=== PATIENT | female | born 1965 | race Caucasian/White ===

== ENCOUNTER 2023-10-18 17:21 | Inpatient (IN) ==
[2023-10-18] MEDS ORDERED: ATARAX TAB 25 MG PO PRN (19:21)
[2023-10-18 19:50] LABS: BASOPHILS % (AUTO) 0.6 % (0.2-1.0); EOSINOPHILS # (AUTO) 0.1 x10^3/uL (0.0-0.2); EOSINOPHILS % (AUTO) 2.2 % (0.9-2.9); HEMATOCRIT 37.1 % (36.0-47.0); HEMOGLOBIN 12.6 g/dL (12.0-16.0); LYMPHOCYTES # (AUTO) 1.2 X10^3/uL (1.3-2.9); LYMPHOCYTES % (AUTO) 19.7 % (21.0-51.0); MEAN CORPUSCULAR HEMOGLOBIN 28.4 pg (27.0-34.0); MEAN CORPUSCULAR VOLUME 83.4 fL (80.0-100.0); MEAN PLATELET VOLUME 7.7 fL (7.4-11.0); MONOCYTES # (AUTO) 0.3 x10^3/uL (0.3-0.8); NEUTROPHILS # (AUTO) 4.2 x10^3/uL (2.2-4.8); NEUTROPHILS % (AUTO) 72.5 % (42.0-75.0); PLATELET COUNT 103 X10^3/uL (150.0-450.0); RED BLOOD COUNT 4.44 X10^6/uL (3.5-5.4); RED CELL DISTRIBUTION WIDTH 16.7 % (11.6-16.5); WHITE BLOOD COUNT 5.9 X10^3/uL (3.6-10.0)
[2023-10-18 20:12] VITALS: BMI 47.2
[2023-10-18] MEDS ORDERED: IMITREX TAB PO PRN (21:00)
[2023-10-18] MEDS: LR 1,000 ML IV 1,000 ML IV SCH (21:29)
[2023-10-18] MEDS: SINGULAIR TAB 10 MG PO SCH (21:30)
[2023-10-18] MEDS: MIRAPEX TAB 0.25 MG PO SCH (21:30)
[2023-10-18] MEDS: LIORESAL PO SCH (21:30)
[2023-10-18] MEDS: LOVENOX INJ 80 MG SYR SC ONE (21:46)
[2023-10-19 00:39] LABS: ALANINE AMINOTRANSFERASE 24 Units/L (12-78); ALBUMIN 2.7 g/dL (3.4-5.0); ALKALINE PHOSPHATASE 138 Units/L (46-116); ASPARTATE AMINO TRANSFERASE 21 Units/L (15-37); BLOOD UREA NITROGEN 14 mg/dL (7-18); CALCIUM 8.6 mg/dL (8.5-10.1); CARBON DIOXIDE 31.1 mmol/L (21-32); CHLORIDE 106 mmol/L (98-107); COR CA(FOR HYPOALB) 9.6 mg/dL (8.5-10.1); CREATININE 0.71 mg/dL (0.55-1.02); GLUCOSE 84 mg/dL (65-99); POTASSIUM 3.4 mmol/L (3.5-5.1); SODIUM 144 mmol/L (136-145); TOTAL PROTEIN 6.8 g/dL (6.4-8.2); eGFR NON BLACK RACES > 60 (>60)
[2023-10-19] MEDS: SYNTHROID 75 mcg TAB PO SCH (05:51)
[2023-10-19] MEDS ORDERED: SYNTHROID 50 mcg TAB PO SCH (06:30)
[2023-10-19] MEDS ORDERED: CONSULT PHARMACY - POTASSIUM & MAGNESIUM XX SCH (08:00)
--- NOTE | 2023-10-19 08:17 | EKG ---
Test Reason : preop Blood Pressure : */* mmHG Vent. Rate : 79 BPM Atrial Rate : 79 BPM P-R Int : 146 ms QRS Dur : 148 ms QT Int : 474 ms P-R-T Axes : 61 42 13 degrees QTc Int : 543 ms Sinus rhythm with premature atrial complexes Right bundle branch block Abnormal ECG No previous ECGs available Confirmed by Moe Sheriff MD ([id number]) on 10/19/2023 10:28:07 AM Referred By: Confirmed By: Moe Sheriff MD
--- NOTE | 2023-10-19 08:28 | RAD ---
EXAM: CHEST, 1 VIEW HISTORY: failed central line placement, r/o pneumo; COMPARISON: No relevant prior studies were available for comparison at the time of interpretation. TECHNIQUE: CHEST, 1 VIEW FINDINGS: Chest: Lines and tubes: None Mediastinum: Cardiac and mediastinal shadow is within normal limits for size and contour. Pulmonary vessels: No pulmonary vascular congestion. Lung quiñones: No suspicious airspace opacity. Pleura: No effusion. No pneumothorax. Bones and soft tissues: No acute osseous or soft tissue abnormality. IMPRESSION: 1. No acute cardiopulmonary abnormality THIS IS AN ELECTRONICALLY VERIFIED FINAL REPORT 10/19/2023 8:21 AM - Electronically signed by Dru Betancur MD
[2023-10-19] MEDS: FARXIGA PO SCH (08:49)
[2023-10-19] MEDS: PROTONIX TAB 40 MG PO SCH (08:50)
[2023-10-19] MEDS: NORVASC TAB 10 MG PO SCH (08:50)
[2023-10-19] MEDS: K-DUR TAB 20 MEQ PO SCH (08:50)
[2023-10-19] MEDS: LEXAPRO PO SCH (08:50)
[2023-10-19] MEDS ORDERED: LEXAPRO PO SCH (09:00)
[2023-10-19] MEDS: NS 1,000 ML IV 1,000 ML ONE (09:57)
[2023-10-19] MEDS: D50W ABBOJECT SYR ONE (13:26)
[2023-10-19] MEDS: D5 1/2 NS 1,000 ML 1,000 ML IV ONE (13:30)
[2023-10-19] MEDS: ROBINUL ONE (13:40)
[2023-10-19] MEDS: HEPARIN SODIUM IN D5W 75,000 UNITS/1,500 ML BAG ONE (13:40)
[2023-10-19] MEDS: ANCEF VIAL 1 GRAM ONE (13:40)
[2023-10-19] MEDS: NS 100 ML IV 100 ML ONE (13:40)
[2023-10-19] MEDS ORDERED: PRECEDEX INJ VIAL ONE (13:40)
[2023-10-19] MEDS: OMNIPAQUE 350 mg/mL 50 mL BTL 50 ML ONE (13:40)
[2023-10-19] MEDS: FENTANYL VIAL INJ 100 mcg ONE (13:40)
[2023-10-19] MEDS: KETAMINE HCL ONE (13:40)
[2023-10-19] MEDS: OMNIPAQUE 350 mg/mL 100 mL BTL 100 ML ONE (13:40)
[2023-10-19] MEDS: DIPRIVAN VIAL 20 ML ONE (13:40)
[2023-10-19] MEDS: VERSED ONE (13:40)
[2023-10-19] MEDS: MARCAINE 0.5% ONE (13:40)
[2023-10-19] MEDS: VISIPAQUE 100 ML ONE (13:53)
[2023-10-19] MEDS: VISIPAQUE 50 ML ONE (13:53)
[2023-10-19] MEDS: HEPARIN SODIUM INJ 5000 UNITS ONE (14:01)
[2023-10-19] MEDS: PROTAMINE SULFATE 50 MG VIAL ONE (14:35)
--- NOTE | 2023-10-19 14:52 | OR.IMMED ---
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 Will be on 1800 [place] diet, will discuss femoral femoral bypass with the patient, discontinued Lovenox , start PO Xarelto
[2023-10-19] MEDS: XARELTO PO SCH (21:00)
[2023-10-19] MEDS: NovoLIN R (or HumuLIN R) SC PRN (21:04)
[2023-10-19] MEDS: PERCOCET TAB 5/325 MG PO PRN (22:06)
--- NOTE | 2023-10-20 05:44 | RAD ---
PROCEDURE: Chest X-ray 1 View.HISTORY: Left lower extremity pain.TECHNIQUE: AP portable done at 12:25 a.m..COMPARISON: November 2023.TECHNICAL QUALITY: Satisfactory.FINDINGS:Normal size heart.Mediastinum and hilar regions show no masses or lymphadenopathy.Normal central vascularity.No pulmonary consolidation, masses, pleural fluid, or pneumothorax. Unchanged elevated right hemidiaphragm.No acute bony abnormality.IMPRESSION:1. No evidence of active cardiopulmonary disease.2. Unchanged elevated right hemidiaphragm.THIS IS AN ELECTRONICALLY VERIFIED FINAL REPORT10/20/2023 5:41 AM - Electronically signed by Ronny Stoddard MD
[2023-10-20] MEDS: LEXAPRO ONE (07:50)
[2023-10-20] MEDS: NS 100 ML IV 100 ML ONE (07:51)
[2023-10-20] MEDS ORDERED: LEXAPRO ONE (08:44)
--- NOTE | 2023-10-20 11:50 | W.DIS.FURT ---
Summary of Discharge Discharge Summary of Date Date of Exam: 10/20/23 Admission Date Date of Admission: 10/18/23 Admission Diagnosis Hospital Course: 57 yo female with significant talar deformity and is scheduled for ORIf . Has recent doppler of arteries showing TOR 0n the left of 0.5 with significant rest pain. Had aortogram yesterday showing complete occlusion of the left common iliac artery . I could not get a wire across it and stopped . She will require femoral femoral bypass which is tentatively scheduled for next week. Vital Signs: Vital Signs (72 hours) 10/18/23 19:15 10/18/23 20:00 10/19/23 00:00 Temperature 98.4 F 98.0 F Pulse Rate Pulse Rate [Left Apical] 67 78 Respiratory Rate 19 19 Blood Pressure Blood Pressure [Left Arm] 185/90 135/61 O2 Sat by Pulse Oximetry 97 94 L Oxygen Delivery Method Room Air Room Air Room Air 10/19/23 04:00 10/19/23 04:00 10/19/23 07:00 Temperature 98.0 F 98.0 F Pulse Rate Pulse Rate [Left Apical] 61 61 Respiratory Rate 21 21 Blood Pressure Blood Pressure [Left Arm] 145/64 145/64 O2 Sat by Pulse Oximetry 97 96 Oxygen Delivery Method Room Air Room Air Room Air 10/19/23 08:00 10/19/23 10:16 10/19/23 14:50 Temperature 98.0 F 97.8 F Pulse Rate 59 L Pulse Rate [Left Apical] 65 93 H Respiratory Rate 22 18 18 Blood Pressure 139/65 Blood Pressure [Left Arm] 151/67 149/71 O2 Sat by Pulse Oximetry 98 97 94 L Oxygen Delivery Method Room Air Room Air 10/19/23 15:05 10/19/23 15:20 10/19/23 15:35 Temperature 97.7 F 97.7 F 97.7 F Pulse Rate Pulse Rate [Left Apical] 83 84 81 Respiratory Rate 20 20 20 Blood Pressure Blood Pressure [Left Arm] 147/65 131/55 143/65 O2 Sat by Pulse Oximetry 96 94 L 97 Oxygen Delivery Method 10/19/23 15:50 10/19/23 16:50 10/19/23 17:50 Temperature 97.8 F 97.9 F 97.9 F Pulse Rate Pulse Rate [Left Apical] 70 72 73 Respiratory Rate 18 18 20 Blood Pressure Blood Pressure [Left Arm] 144/76 134/61 144/76 O2 Sat by Pulse Oximetry 94 L 96 96 Oxygen Delivery Method 10/19/23 19:00 10/19/23 20:00 10/19/23 22:06 Temperature 98.6 F Pulse Rate Pulse Rate [Left Apical] 84 Respiratory Rate 20 20 Blood Pressure Blood Pressure [Left Arm] 127/63 O2 Sat by Pulse Oximetry 95 Oxygen Delivery Method Room Air Room Air 10/19/23 19:50 10/19/23 18:50 10/19/23 23:06 Temperature 98.6 F 97.7 F Pulse Rate Pulse Rate [Left Apical] 84 82 Respiratory Rate 20 18 18 Blood Pressure Blood Pressure [Left Arm] 127/63 132/74 O2 Sat by Pulse Oximetry 95 96 Oxygen Delivery Method Room Air Room Air 10/20/23 00:00 10/20/23 03:59 10/20/23 04:00 Temperature 97.8 F 97.7 F Pulse Rate Pulse Rate [Left Apical] 62 80 Respiratory Rate 20 18 19 Blood Pressure Blood Pressure [Left Arm] 171/79 175/76 O2 Sat by Pulse Oximetry 98 95 Oxygen Delivery Method Room Air Room Air 10/20/23 04:59 10/20/23 08:00 10/20/23 07:00 Temperature 97.2 F L Pulse Rate Pulse Rate [Left Apical] 58 L Respiratory Rate 19 17 Blood Pressure Blood Pressure [Left Arm] 125/60 O2 Sat by Pulse Oximetry 90 L Oxygen Delivery Method Room Air Room Air Labs: Laboratory Last Values WBC 5.9 X10^3/uL (3.6-10.0) 10/18/23 19:40 RBC 4.44 X10^6/uL (3.5-5.4) 10/18/23 19:40 Hgb 12.6 g/dL (12.0-16.0) 10/18/23 19:40 Hct 37.1 % (36.0-47.0) 10/18/23 19:40 MCV 83.4 fL (80.0-100.0) 10/18/23 19:40 MCH 28.4 pg (27.0-34.0) 10/18/23 19:40 MCHC 34.0 g/dL (33.0-35.0) 10/18/23 19:40 RDW 16.7 % (11.6-16.5) H 10/18/23 19:40 Plt Count 103 X10^3/uL (150.0-450.0) L 10/18/23 19:40 MPV 7.7 fL (7.4-11.0) 10/18/23 19:40 Neut % (Auto) 72.5 % (42.0-75.0) 10/18/23 19:40 Lymph % (Auto) 19.7 % (21.0-51.0) L 10/18/23 19:40 [place] % (Auto) 5.0 % (0.0-13.0) 10/18/23 19:40 Eos % (Auto) 2.2 % (0.9-2.9) 10/18/23 19:40 Baso % (Auto) 0.6 % (0.2-1.0) 10/18/23 19:40 Neut # (Auto) 4.2 x10^3/uL (2.2-4.8) 10/18/23 19:40 Lymph # (Auto) 1.2 X10^3/uL (1.3-2.9) L 10/18/23 19:40 [place] # (Auto) 0.3 x10^3/uL (0.3-0.8) 10/18/23 19:40 Eos # (Auto) 0.1 x10^3/uL (0.0-0.2) 10/18/23 19:40 Baso # (Auto) 0.0 X10^3/uL (0.0-0.1) 10/18/23 19:40 Absolute Nucleated RBC 0.0 /100WBC 10/18/23 19:40 Sodium 144 mmol/L (136-145) 10/19/23 00:10 Corrected Sodium TNP 10/19/23 00:10 Potassium 3.4 mmol/L (3.5-5.1) L 10/19/23 00:10 Chloride 106 mmol/L (98-107) 10/19/23 00:10 Carbon Dioxide 31.1 mmol/L (21-32) 10/19/23 00:10 BUN 14 mg/dL (7-18) 10/19/23 00:10 Creatinine 0.71 mg/dL (0.55-1.02) 10/19/23 00:10 Est GFR (MDRD) Af Amer > 60 (>60) 10/19/23 00:10 Est GFR (MDRD) Non-Af > 60 (>60) 10/19/23 00:10 Glucose 84 mg/dL (65-99) 10/19/23 00:10 POC Glucose (mg/dL) 66 mg/dL (65-99) 10/19/23 13:24 Calcium 8.6 mg/dL (8.5-10.1) 10/19/23 00:10 Corrected Calcium 9.6 mg/dL (8.5-10.1) 10/19/23 00:10 Magnesium 1.9 mg/dL (2.0-2.9) L 10/20/23 05:30 Total Bilirubin 0.90 mg/dL (0.2-1.0) 10/19/23 00:10 AST 21 Units/L (15-37) 10/19/23 00:10 ALT 24 Units/L (12-78) 10/19/23 00:10 Alkaline Phosphatase 138 Units/L (46-116) H 10/19/23 00:10 Total Protein 6.8 g/dL (6.4-8.2) 10/19/23 00:10 Albumin 2.7 g/dL (3.4-5.0) L 10/19/23 00:10 Globulin 4.1 g/dL (2.5-4.5) 10/19/23 00:10 Albumin/Globulin Ratio 0.7 Ratio (1.1-2.1) L 10/19/23 00:10 Reason For Visit: CRITICAL ISCHEMIA LEFT LEG Discharge Date Discharge Date: 10/20/23 Discharge Diagnosis All Active Problems (Updated 10/20/23 @ 11:39 by Obi Storey) 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 Pt is to keep follow up ap pointment as instructed and take medications as ordered. see hospital course Discharge Medications Discharge Medications: latex Allergy (Severe, Verified 10/20/23 08:52) PHLEBITIS NSAIDS (Non-Steroidal Anti-Inflamma [NSAID] Allergy (Severe, Verified 10/20/23 08:51) ANAPHALEXIS REACTION Penicillins Allergy (Severe, Verified 10/20/23 08:50) ANAPHALEXIS REACTION tramadol [From Ultram] Allergy (Severe, Verified 10/20/23 08:52) RASH CONTINUE taking the following medications dapagliflozin propanediol 10 mg tablet (Farxiga) 10 mg PO QDAY 10/18/23 [History] dapagliflozin propanediol 10 mg tablet (Farxiga) 10 mg PO QDAY 10/18/23 [History] dapagliflozin propanediol 10 mg tablet (Farxiga) 10 mg PO QDAY 10/18/23 [History] oxycodone-acetaminophen 7.5 mg-325 mg tablet 1 tab PO Q8H PRN 10/18/23 [History Percocet 5 mg, 1 po q 6 Hr prn pain, # 20 Discharge Disposition Assessment: see hospital course Discharge Plan Discharge Plan Hospital Course: 57 yo female with significant talar deformity and is scheduled for ORIf . Has recent doppler of arteries showing TOR 0n the left of 0.5 with significant rest pain. Had aortogram yesterday showing complete occlusion of the left common iliac artery . I could not get a wire across it and stopped . She will require femoral femoral bypass which is tentatively scheduled for next week. Patient Disposition: 01 HOME, SELF-CARE Condition: Stable Health Concerns: Post Hospitalization: new medications and changes needed to prevent readmission or further decline. Pt educated and given instructions on all concerns. Care Plan Goals: Problem: Pain/Alteration in Comfort Goal: Improve/ Resolve Pain; Achieve Pain Tolerance Instructions: Take pain medications as prescribed. Contact your primary care provider if your pain is unrelieved or worsens. Follow up with primary care provider as directed. Plan of Treatment: Continue with present treatment and follow up plan. Pt is to keep follow up appointment as instructed and take medications as ordered. see hospital course Assessment: see hospital course Prescription drug monitoring program results: PDMP reviewed and no concerns identified Prescriptions: New oxycodone-acetaminophen [Percocet] 5-325 mg tablet 1 tab PO Q6H MDD 4 PRN (Reason: pain) Qty: 20 0RF Continued carvedilol 25 MG tablet 25 mg PO BID venlafaxine 75 MG tablet 75 mg PO DAILY quetiapine 200 MG tablet 200 mg PO HS amlodipine 10 MG tablet 10 mg PO DAILY metoclopramide HCl 10 MG tablet 10 mg PO BID ramipril 10 MG capsule 10 mg PO DAILY pioglitazone-metformin [Actoplus MET] 15 MG/850 MG tablet 1 tab PO BID Esomeprazole Magnesium [Nexium 40MG CAP] 40 MG Cap 40 mg PO DAILY Levothyroxine Sodium [Synthroid] 75 MCG Tab 75 mcg PO DAILY Potassium Chloride Microencaps [Klor-Con M10 (10 mEQ)] 10 MEQ Tab 10 meq PO DAILY Oxycodone HCl [Oxycontin] 10 MG Tab 15 mg PO BID dapagliflozin propanediol [Farxiga] 10 mg tablet 10 mg PO QDAY dapagliflozin propanediol [Farxiga] 10 mg tablet 10 mg PO QDAY dapagliflozin propanediol [Farxiga] 10 mg tablet 10 mg PO QDAY oxycodone-acetaminophen 7.5-325 mg tablet 1 tab PO Q8H PRN Follow ups/Referrals Follow ups/Referrals: Obi Storey [STAFF PHYSICIAN] - 11/06/23 11:30 am Instructions Instructions: Endovascular Therapy for Peripheral Vascular Disease, Care After Stand Alone Forms: Excuse From Work or School, Post Hospital Follow Up Care
[2023-10-20 12:56] VITALS: BP 153/70; PULSE 61; RESP 18; TEMP 98.2; O2SAT 91
--- NOTE | 2023-10-23 11:27 | DR.OPNOTE ---
OP NOTE Pre-Op Diagnosis: Critical ischemia left leg Post-Op Diagnosis: same Procedure Date Date Of Procedure: 10/19/23 Procedure: PROCEDURE: DIAGNOSTIC AORTOGRAM, DIAGNOSTIC ARTERIOGRAM LEFT LEG NARRATIVE : The patient was taken to the operative suite and placed in the supine position. The right groin and entire left leg were prepped and draped in sterile fashion. The patient was given intravenous sedation supervised by myself. Time out for the procedure obtained. Ultrasound used to identify the right femoral artery and the skin overlying it infiltrated with 0.5% Marcaine. Ultrasound then used to guide puncture of the right femoral artery and a 0.012 inch guide wire was placed. Incision made over the guide wire at the skin edge with a # 11 knife blade and a micro sheath placed over the guide wire into the right femoral artery The small guidewire exchanged for a 0.035 inch Advantage glide wire and the micro sheath exchanged for a 5 Fr vascular sheath. Patient given 5000 units of intravenous heparin. Omni catheter was placed over the guide wire into the aorta and diagnostic aortogram carried out with the power injector showing normal aorta and completely occluded left common iliac arterty . Omni catheter was attempted to steer the guide wire down the left common iliac artery but this was unsuccessful. Ultrasound used to identify the left femoral artery and the skin overlying it infiltrated with 0.5% Marcaine .Ultrasound used to guide puncture of the left common femoral artery and a 0.014 inch wire placed. Incision made over the wire with a number 11 knife blade and a micro sheath placed over the guide wire into the left femoral artery . The small wire exchanged for a 0.035 inch Advantage Leckrone wire and the micro sheath exchanged for a 5 Fr sheath. Multiple attempts to cross the left iliac arttery occlusion were unsuccesful. Arteriogram obtained of the left leg by infusing contrast through the left sided sheath. Left leg runoff was normal. Over a 0.035 inch wkire on each side the vascualr sheaths were exchanged for Angioseal devices used to close each femoral artery puncture. Dressing applied to the both groins. The patient taken to [facility] Day Surgery in good condition. The patient will be scheduled for femoral femoral bypass in the future. Type of Anesthesia: Local (0.5% Marcaine ) Anesthesia Comment: plus MAC Findings: Complete occlusion of the left common iliac artery Type of Fluids Used:: Lactated Ringers Total Amount of Fluid Infused:: 450 cc EBL: 150 cc Complications:: none Needle/Sponge Count:: rrect Disposition/Condition: Pt. tolerated procedure without difficulty. Taken to floor in stable condition.
== END 2023-10-20 12:20 | disposition home or self-care (01) | DRG 301 ==
LOC: MED/SURG 18:59
PROVIDERS: ADMIT Surgery; ATTEND Surgery

== ENCOUNTER 2023-10-24 08:09 | Observation (INO) ==
[2023-10-24] MEDS: ANCEF VIAL 1 GRAM ONE ×2 (08:34→13:52)
[2023-10-24] MEDS: NS 100 ML IV 0 ML ONE (08:34)
[2023-10-24] MEDS: NOZIN NASAL SANITIZER TP ONE (08:34)
[2023-10-24] MEDS: LR 1,000 ML IV 0 ML IV ONE (08:36)
[2023-10-24] MEDS: NS 1,000 ML IV 1,000 ML ONE ×2 (08:39→14:41)
[2023-10-24 09:44] VITALS: BMI 47.1
--- NOTE | 2023-10-24 10:30 | PCM.PROG ---
Progress Note - Past Medical Family Social History Allergies: Allergies latex Allergy (Severe, Verified 10/20/23 08:52) PHLEBITIS NSAIDS (Non-Steroidal Anti-Inflamma [NSAID] Allergy (Severe, Verified 10/20/23 08:51) ANAPHALEXIS REACTION Penicillins Allergy (Severe, Verified 10/20/23 08:50) ANAPHALEXIS REACTION tramadol [From Ultram] Allergy (Severe, Verified 10/20/23 08:52) RASH acetaminophen [From Tylenol] Allergy (Verified 10/23/23 11:25) clindamycin Allergy (Verified 10/23/23 11:25) ibuprofen [From Motrin] Allergy (Verified 10/23/23 11:25) - Vital Signs and I&O's Vital Signs: Vital Signs Pulse Rate 80 Respiratory Rate 18 Blood Pressure 206/81 O2 Sat by Pulse Oximetry 97 - Physical Exam Speech Pattern: Clear, Appropriate Procedures (ALL) - Central Line Placement PCM.CLCO: written consent Time out performed: Yes Patient placed pm monitor/pulse ox: Yes MD prep: mask, gown, gloves, other (MSBT) Centrial line prep: chlorhexidine scrub, sterile drapes applied Local anesthsia used: lidocane 1% Ultrasound used for placement: Yes (good visual) Central line lumen ininserted: triple Post procedure: sutured in place, good blood return, all ports aspirated, flushed,capped, sterile dressing applied (with biopatch) Post procedure xray: tip oc catheter in good position, no pneumothorax seen Patient tolerated procedure: Yes (x1 attempt) Complications: none (Right IJ)
[2023-10-24] MEDS: ZOFRAN INJ 4 MG VIAL ONE (10:55)
[2023-10-24] MEDS: REGLAN INJ 10 MG VIAL ONE (10:55)
[2023-10-24] MEDS: NS 500 ML IV 500 ML IV ONE (11:00)
--- NOTE | 2023-10-24 11:54 | RAD ---
EXAM:CHEST, 1 VIEWHISTORY:CENTRAL LINE PLACEMENT, PRE OP FEMORAL BYPASS;COMPARISON:No relevant prior studies were available for comparison at the time of interpretation.TECHNIQUE:CHEST, 1 VIEWFINDINGS:Chest:Lines and tubes: Right IJ approach central catheter is seen with its tip in satisfactory positionMediastinum: Cardiac and mediastinal shadow is within normal limits for size and contour.Pulmonary vessels: No pulmonary vascular congestion.Lung quiñones: No suspicious airspace opacity.Pleura: No effusion. No pneumothorax.Bones and soft tissues: No acute osseous or soft tissue abnormality.IMPRESSION:1. No acute cardiopulmonary abnormalityTHIS IS AN ELECTRONICALLY VERIFIED FINAL REPORT10/24/2023 11:51 AM - Electronically signed by Dru Betancur MD
[2023-10-24] MEDS: HEPARIN SODIUM IN D5W 75,000 UNITS/1,500 ML BAG ONE (13:17)
[2023-10-24] MEDS ORDERED: BARHEMSYS INJ IVP PRN (13:40)
[2023-10-24] MEDS ORDERED: DILAUDID INJ IVP PRN (13:40)
[2023-10-24] MEDS ORDERED: ZOFRAN INJ 4 MG VIAL IVP PRN (13:40)
[2023-10-24] MEDS ORDERED: BENADRYL INJ 50 MG VIAL IVP PRN (13:40)
[2023-10-24] MEDS ORDERED: REGLAN INJ 10 MG VIAL IVP PRN (13:40)
[2023-10-24] MEDS: PEPCID 20 MG VIAL ONE (13:49)
[2023-10-24] MEDS: ZEMURON 100 MG VIAL ONE (13:49)
[2023-10-24] MEDS: FENTANYL VIAL INJ 100 mcg ONE ×2 (13:49→14:47)
[2023-10-24] MEDS ORDERED: SUPRANE ONE (13:49)
[2023-10-24] MEDS: DIPRIVAN VIAL 20 ML ONE (13:49)
[2023-10-24] MEDS: VERSED ONE (13:49)
[2023-10-24] MEDS: NS 100 ML IV 100 ML ONE (13:52)
[2023-10-24] MEDS: BRIDION ONE (13:53)
[2023-10-24] MEDS: MARCAINE 0.5% ONE (14:22)
[2023-10-24] MEDS: HEPARIN SODIUM INJ 5000 UNITS ONE (14:54)
[2023-10-24] MEDS: EPHEDRINE SULFATE INJ ONE (15:26)
[2023-10-24] MEDS: PROTAMINE SULFATE 50 MG VIAL ONE (15:37)
[2023-10-24] MEDS ORDERED: NS 500 ML IV 500 ML IV ONE (15:59)
--- NOTE | 2023-10-24 16:17 | OR.IMMED ---
IMMEDIATE POST-OP NOTE Immediate Post-Op Note Date of surgery/procedure: 10/24/23 Pre-Op Diagnosis: critical ischemia left leg, complete occlusion left common iliac artery Post-Op Diagnosis: same Procedure: femoral femoral bypass Description of Procedure: see dictation Surgeon/Wild Life Manager: Cordelia Findings: as above Estimated Blood Loss: 350 cc Complications: none Progress Notes: To CCU for observation, check stat CBC
[2023-10-24] MEDS ORDERED: ATARAX TAB 25 MG PO PRN (16:18)
[2023-10-24] MEDS ORDERED: NovoLIN R (or HumuLIN R) SC PRN (16:23)
[2023-10-24 16:42] LABS: BASOPHILS % (AUTO) 0.4 % (0.2-1.0); EOSINOPHILS # (AUTO) 0.1 x10^3/uL (0.0-0.2); EOSINOPHILS % (AUTO) 2.9 % (0.9-2.9); HEMATOCRIT 34.1 % (36.0-47.0); HEMOGLOBIN 11.5 g/dL (12.0-16.0); LYMPHOCYTES # (AUTO) 0.8 X10^3/uL (1.3-2.9); LYMPHOCYTES % (AUTO) 17.3 % (21.0-51.0); MEAN CORPUSCULAR HEMOGLOBIN 28.5 pg (27.0-34.0); MEAN CORPUSCULAR HGB CONC 33.8 g/dL (33.0-35.0); MEAN CORPUSCULAR VOLUME 84.3 fL (80.0-100.0); MEAN PLATELET VOLUME 7.7 fL (7.4-11.0); MONOCYTES # (AUTO) 0.4 x10^3/uL (0.3-0.8); MONOCYTES % (AUTO) 8.7 % (0.0-13.0); NEUTROPHILS # (AUTO) 3.4 x10^3/uL (2.2-4.8); NEUTROPHILS % (AUTO) 70.7 % (42.0-75.0); PLATELET COUNT 90 X10^3/uL (150.0-450.0); RED BLOOD COUNT 4.05 X10^6/uL (3.5-5.4); RED CELL DISTRIBUTION WIDTH 16.9 % (11.6-16.5); WHITE BLOOD COUNT 4.8 X10^3/uL (3.6-10.0)
[2023-10-24] MEDS: NORMODYNE INJ 20 MG VIAL ONE (16:44)
[2023-10-24] MEDS: LR 1,000 ML IV 1,000 ML IV SCH (17:16)
[2023-10-24] MEDS: PERCOCET TAB 5/325 MG PO PRN ×2 (17:40→18:42)
[2023-10-24] MEDS: LIORESAL PO SCH (21:08)
[2023-10-24] MEDS: SINGULAIR TAB 10 MG PO SCH (21:08)
[2023-10-24] MEDS: MIRAPEX TAB 0.25 MG PO SCH (21:08)
[2023-10-25] MEDS ORDERED: NORMODYNE INJ 100 MG VIAL IVP ONE (00:19)
[2023-10-25] MEDS ORDERED: CATAPRES TAB 0.2 MG PO ONE (00:21)
[2023-10-25] MEDS: DILAUDID INJ IVP PRN (00:45)
[2023-10-25 05:13] LABS: BASOPHILS % (AUTO) 0.2 % (0.2-1.0); EOSINOPHILS # (AUTO) 0.2 x10^3/uL (0.0-0.2); EOSINOPHILS % (AUTO) 2.5 % (0.9-2.9); HEMATOCRIT 29.3 % (36.0-47.0); HEMOGLOBIN 9.8 g/dL (12.0-16.0); LYMPHOCYTES # (AUTO) 0.3 X10^3/uL (1.3-2.9); LYMPHOCYTES % (AUTO) 5.2 % (21.0-51.0); MEAN CORPUSCULAR HEMOGLOBIN 28.2 pg (27.0-34.0); MEAN CORPUSCULAR HGB CONC 33.6 g/dL (33.0-35.0); MEAN CORPUSCULAR VOLUME 84.1 fL (80.0-100.0); MEAN PLATELET VOLUME 8.1 fL (7.4-11.0); MONOCYTES # (AUTO) 0.7 x10^3/uL (0.3-0.8); MONOCYTES % (AUTO) 10.6 % (0.0-13.0); NEUTROPHILS # (AUTO) 5.3 x10^3/uL (2.2-4.8); NEUTROPHILS % (AUTO) 81.5 % (42.0-75.0); PLATELET COUNT 95 X10^3/uL (150.0-450.0); RED BLOOD COUNT 3.48 X10^6/uL (3.5-5.4); RED CELL DISTRIBUTION WIDTH 17.2 % (11.6-16.5); WHITE BLOOD COUNT 6.5 X10^3/uL (3.6-10.0)
[2023-10-25] MEDS: SYNTHROID 75 mcg TAB PO SCH (05:36)
[2023-10-25] MEDS: LIPITOR TAB 40 MG PO SCH (09:16)
[2023-10-25] MEDS: PROTONIX TAB 40 MG PO SCH (09:16)
[2023-10-25] MEDS: NORVASC TAB 10 MG PO SCH (09:17)
[2023-10-25] MEDS: LEXAPRO PO SCH (09:18)
[2023-10-25] MEDS: ZESTRIL TAB 20 MG PO SCH (09:18)
[2023-10-25] MEDS: LOVENOX INJ 40 MG SYR SC SCH (09:19)
[2023-10-25] MEDS: LEXAPRO ONE ×2 (10:23→10:25)
[2023-10-25] MEDS: ZESTRIL TAB 20 MG ONE (10:25)
--- NOTE | 2023-10-25 11:26 | W.DIS.FURT ---
Summary of Discharge Discharge Summary of Date Date of Exam: 10/25/23 Admission Date Date of Admission: 10/24/23 Admission Diagnosis Hospital Course: This is a 57 year old female, morbidly obese who was referred for vascular evaluation preceding operative intervention of the right ankle. Dopper studies showed normal blood flow of the right leg however the left leg had an index of 0.5. Last week we performed arteriography showing complete occlusion of the left common iliac artery and I could not get a wire cross it to repair this in a peripheral based fashion. Therefore, yesterday she underwent a femoral femoral bypass without complication. Post procedure she has done well and is using a walker and her pain is controlled with PO pain medications. She has a history of hypertension and has been on amlodipine, lisinopril l and carvediol, however her primary care physician had stopped her carvediol l and the lisinopril Blood pressure has been approximately 170 / 70. We will start the lisinopril back and send her home today. In addition she will be given prescription for Percocet, 10 milligram tablets, 1 PO q 6 Hr PRN , # 30 and I will see her in the office in 1 week. We will refer her back to her PCP to further address her hypertension. Vital Signs: Vital Signs (72 hours) 10/24/23 09:33 10/24/23 08:29 10/24/23 16:16 Temperature 98.9 F Pulse Rate 80 109 H Pulse Rate [Apical] Respiratory Rate 18 16 Blood Pressure 206/81 183/77 Blood Pressure [Left Arm] O2 Sat by Pulse Oximetry 97 97 Oxygen Delivery Method Room Air Nasal Cannula Aerosol Face Tent Oxygen Flow Rate 2 FIO2% 10/24/23 16:21 10/24/23 16:31 10/24/23 16:41 Temperature Pulse Rate 88 85 80 Pulse Rate [Apical] Respiratory Rate 17 18 18 Blood Pressure 178/77 180/77 182/79 Blood Pressure [Left Arm] O2 Sat by Pulse Oximetry 96 98 97 Oxygen Delivery Method Aerosol Face Tent Aerosol Face Tent Nasal Cannula Oxygen Flow Rate FIO2% 10/24/23 16:26 10/24/23 16:36 10/24/23 16:46 Temperature Pulse Rate 89 79 82 Pulse Rate [Apical] Respiratory Rate 18 18 18 Blood Pressure 192/77 178/77 172/73 Blood Pressure [Left Arm] O2 Sat by Pulse Oximetry 96 96 97 Oxygen Delivery Method Aerosol Face Tent Nasal Cannula Nasal Cannula Oxygen Flow Rate FIO2% 10/24/23 17:40 10/24/23 18:42 10/24/23 18:40 Temperature Pulse Rate Pulse Rate [Apical] Respiratory Rate 20 20 20 Blood Pressure Blood Pressure [Left Arm] O2 Sat by Pulse Oximetry Oxygen Delivery Method Oxygen Flow Rate FIO2% 10/24/23 16:55 10/24/23 17:10 10/24/23 17:25 Temperature 97.6 F 97.6 F 97.5 F L Pulse Rate Pulse Rate [Apical] 80 78 75 Respiratory Rate 21 19 20 Blood Pressure Blood Pressure [Left Arm] 191/79 144/65 169/65 O2 Sat by Pulse Oximetry 91 L 92 L 96 Oxygen Delivery Method Oxygen Flow Rate FIO2% 10/24/23 17:40 10/24/23 17:55 10/24/23 19:00 Temperature 97.5 F L 97.5 F L Pulse Rate Pulse Rate [Apical] 70 66 Respiratory Rate 22 18 Blood Pressure Blood Pressure [Left Arm] 166/101 174/71 O2 Sat by Pulse Oximetry 98 97 Oxygen Delivery Method Nasal Cannula Oxygen Flow Rate 4 FIO2% 10/24/23 19:00 10/24/23 19:42 10/24/23 20:00 Temperature 97.6 F 97.8 F Pulse Rate 69 67 Pulse Rate [Apical] Respiratory Rate 27 H 22 43 H Blood Pressure 161/69 155/68 Blood Pressure [Left Arm] O2 Sat by Pulse Oximetry 96 97 Oxygen Delivery Method Nasal Cannula Nasal Cannula Oxygen Flow Rate 4 4 FIO2% 10/24/23 21:00 10/24/23 23:00 10/25/23 00:45 Temperature Pulse Rate 72 Pulse Rate [Apical] Respiratory Rate 22 18 24 Blood Pressure 171/72 Blood Pressure [Left Arm] O2 Sat by Pulse Oximetry 98 Oxygen Delivery Method Nasal Cannula Oxygen Flow Rate 4 FIO2% 10/24/23 22:00 10/24/23 23:00 10/24/23 18:55 Temperature 97.5 F L Pulse Rate 69 67 Pulse Rate [Apical] 62 Respiratory Rate 25 H 24 19 Blood Pressure 171/73 147/64 Blood Pressure [Left Arm] 161/68 O2 Sat by Pulse Oximetry 96 99 98 Oxygen Delivery Method Nasal Cannula Nasal Cannula Oxygen Flow Rate 4 4 FIO2% 10/24/23 19:55 10/24/23 20:55 10/24/23 21:55 Temperature 97.8 F 97.8 F 98.3 F Pulse Rate Pulse Rate [Apical] 70 74 70 Respiratory Rate 24 21 20 Blood Pressure Blood Pressure [Left Arm] 155/68 171/72 147/64 O2 Sat by Pulse Oximetry 98 99 99 Oxygen Delivery Method Oxygen Flow Rate FIO2% 10/24/23 23:24 10/25/23 00:00 10/25/23 00:00 Temperature 98.3 F Pulse Rate 71 Pulse Rate [Apical] Respiratory Rate 19 24 Blood Pressure 159/68 Blood Pressure [Left Arm] O2 Sat by Pulse Oximetry 99 Oxygen Delivery Method Nasal Cannula Nasal Cannula Oxygen Flow Rate 3 3 FIO2% 32 10/25/23 01:00 10/25/23 02:59 10/25/23 03:00 Temperature Pulse Rate 80 85 84 Pulse Rate [Apical] Respiratory Rate 29 H 30 H 27 H Blood Pressure 148/60 Blood Pressure [Left Arm] O2 Sat by Pulse Oximetry 94 L 96 96 Oxygen Delivery Method Nasal Cannula Oxygen Flow Rate 3 FIO2% 10/25/23 03:01 10/25/23 03:01 10/25/23 01:15 Temperature Pulse Rate 85 Pulse Rate [Apical] Respiratory Rate 27 H 22 Blood Pressure 158/68 Blood Pressure [Left Arm] O2 Sat by Pulse Oximetry 96 Oxygen Delivery Method Oxygen Flow Rate FIO2% 10/25/23 04:00 10/25/23 05:00 10/25/23 05:32 Temperature 98.5 F Pulse Rate 90 90 Pulse Rate [Apical] Respiratory Rate 31 H 29 H 21 Blood Pressure 149/66 173/72 Blood Pressure [Left Arm] O2 Sat by Pulse Oximetry 95 97 Oxygen Delivery Method Nasal Cannula Nasal Cannula Oxygen Flow Rate 3 3 FIO2% 10/25/23 06:02 10/25/23 06:00 10/25/23 07:00 Temperature Pulse Rate 92 H 95 H Pulse Rate [Apical] Respiratory Rate 18 32 H 26 H Blood Pressure 122/69 140/63 Blood Pressure [Left Arm] O2 Sat by Pulse Oximetry 93 L 96 Oxygen Delivery Method Nasal Cannula Nasal Cannula Oxygen Flow Rate 3 2 FIO2% 10/25/23 08:00 10/25/23 09:10 10/25/23 07:00 Temperature 98.6 F Pulse Rate 97 H Pulse Rate [Apical] Respiratory Rate 34 H Blood Pressure 160/69 Blood Pressure [Left Arm] O2 Sat by Pulse Oximetry 95 Oxygen Delivery Method Nasal Cannula Nasal Cannula Nasal Cannula Oxygen Flow Rate 2 3 2 FIO2% 32 10/25/23 09:00 Temperature 98.6 F Pulse Rate 98 H Pulse Rate [Apical] Respiratory Rate 30 H Blood Pressure 160/70 Blood Pressure [Left Arm] O2 Sat by Pulse Oximetry 96 Oxygen Delivery Method Nasal Cannula Oxygen Flow Rate 2 FIO2% Labs: Laboratory Last Values WBC 6.5 X10^3/uL (3.6-10.0) 10/25/23 04:22 RBC 3.48 X10^6/uL (3.5-5.4) L 10/25/23 04:22 Hgb 9.8 g/dL (12.0-16.0) L 10/25/23 04:22 Hct 29.3 % (36.0-47.0) L 10/25/23 04:22 MCV 84.1 fL (80.0-100.0) 10/25/23 04:22 MCH 28.2 pg (27.0-34.0) 10/25/23 04:22 MCHC 33.6 g/dL (33.0-35.0) 10/25/23 04:22 RDW 17.2 % (11.6-16.5) H 10/25/23 04:22 Plt Count 95 X10^3/uL (150.0-450.0) L 10/25/23 04:22 MPV 8.1 fL (7.4-11.0) 10/25/23 04:22 Neut % (Auto) 81.5 % (42.0-75.0) H 10/25/23 04:22 Lymph % (Auto) 5.2 % (21.0-51.0) L 10/25/23 04:22 Dupage % (Auto) 10.6 % (0.0-13.0) 10/25/23 04:22 Eos % (Auto) 2.5 % (0.9-2.9) 10/25/23 04:22 Baso % (Auto) 0.2 % (0.2-1.0) 10/25/23 04:22 Neut # (Auto) 5.3 x10^3/uL (2.2-4.8) H 10/25/23 04:22 Lymph # (Auto) 0.3 X10^3/uL (1.3-2.9) L 10/25/23 04:22 Dupage # (Auto) 0.7 x10^3/uL (0.3-0.8) 10/25/23 04:22 Eos # (Auto) 0.2 x10^3/uL (0.0-0.2) 10/25/23 04:22 Baso # (Auto) 0.0 X10^3/uL (0.0-0.1) 10/25/23 04:22 Absolute Nucleated RBC 0.1 /100WBC 10/25/23 04:22 POC Glucose (mg/dL) 102 mg/dL (65-99) H 10/24/23 16:23 Blood Type A POSITIVE 10/24/23 14:38 Antibody Screen Negative 10/24/23 14:38 Reason For Visit: FEMOROFEMORAL BYPASS (L) Discharge Date Discharge Date: 10/25/23 Discharge Diagnosis All Active Problems (Updated 10/24/23 @ 10:30 by Juan J Ordonez) 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 Pt is to keep follow up appointment as instructed and take medications as ordered. Discharge Medications Discharge Medications: latex Allergy (Severe, Verified 10/20/23 08:52) PHLEBITIS NSAIDS (Non-Steroidal Anti-Inflamma [NSAID] Allergy (Severe, Verified 10/20/23 08:51) ANAPHALEXIS REACTION Penicillins Allergy (Severe, Verified 10/20/23 08:50) ANAPHALEXIS REACTION tramadol [From Ultram] Allergy (Severe, Verified 10/20/23 08:52) RASH acetaminophen [From Tylenol] Allergy (Verified 10/23/23 11:25) clindamycin Allergy (Verified 10/23/23 11:25) ibuprofen [From Motrin] Allergy (Verified 10/23/23 11:25) CONTINUE taking the following medications atorvastatin 40 mg tablet (Lipitor) 40 mg PO QDAY 10/23/23 [History] baclofen 10 mg tablet 10 mg PO TID 10/23/23 [History] erenumab-aooe 70 mg/mL subcutaneous auto-injector (Aimovig Autoinjector) 70 mg subcut QMONTH 10/23/23 [History] escitalopram oxalate 10 mg tablet (Lexapro) 10 mg PO TID 10/23/23 [History] famotidine 40 mg tablet 40 mg PO QPM 10/23/23 [History] hydroxyzine HCl 25 mg tablet 25 mg PO Q8H PRN 10/23/23 [History] insulin aspart U-100 100 unit/mL (3 mL) subcutaneous pen (Novolog FlexPen U-100 Insulin aspart) 1 sliding scale dose subcut USEASDIRECTD 10/23/23 [History] insulin degludec 200 unit/mL (3 mL) subcutaneous pen (Tresiba FlexTouch U-200 insulin) 10 unit subcut QDAY 10/23/23 [History] levocetirizine 5 mg tablet 5 mg PO QDAY 10/23/23 [History] montelukast 10 mg tablet 10 mg PO QDAY 10/23/23 [History] ymbmpbif-fwjb-lzdd 8 mg-folic 400 mcg-K 50 mcg-lutein 300 mcg tablet (Centrum Silver Women) 1 tab PO QDAY 10/23/23 [History] pramipexole 1 mg tablet 1 mg PO TID 10/23/23 [History] solifenacin 5 mg tablet 5 mg PO QPM 10/23/23 [History] sumatriptan succinate 100 mg tablet (Imitrex) 100 mg PO BID PRN Headache 10/23/23 [History] suvorexant 10 mg tablet (Belsomra) 10 mg PO QPM 10/23/23 [History] tirzepatide 15 mg/0.5 mL subcutaneous pen injector (Mounjaro) 15 mg subcut QWEEK 10/23/23 [History] Norvasc 10 mg po daily lisinopril 30 mg daily New Perceocet 10 mg 1 po q 6 hr PRN pain. Discharge Disposition Assessment: see hospital course Discharge Plan Discharge Plan Hospital Course: This is a 57 year old female, morbidly obese who was referred for vascular evaluation preceding operative intervention of the right ankle. Dopper studies showed normal blood flow of the right leg however the left leg had an index of 0.5. Last week we performed arteriography showing complete occlusion of the left common iliac artery and I could not get a wire cross it to repair this in a peripheral based fashion. Therefore, yesterday she underwent a femoral femoral bypass without complication. Post procedure she has done well and is using a walker and her pain is controlled with PO pain medications. She has a history of hypertension and has been on amlodipine, lisinopril l and carvediol, however her primary care physician had stopped her carvediol l and the lisinopril Blood pressure has been approximately 170 / 70. We will start the lisinopril back and send her home today. In addition she will be given prescription for Percocet, 10 milligram tablets, 1 PO q 6 Hr PRN , # 30 and I will see her in the office in 1 week. We will refer her back to her PCP to further address her hypertension. Patient Disposition: 01 HOME, SELF-CARE Condition: Good Health Concerns: Post Hospitalization: new medications and changes needed to prevent readmission or further decline. Pt educated and given instructions on all concerns. Care Plan Goals: Problem: Pain/Alteration in Comfort Goal: Improve/ Resolve Pain; Achieve Pain Tolerance Instructions: Take pain medications as prescribed. Contact your primary care provider if your pain is unrelieved or worsens. Follow up with primary care provider as directed. Plan of Treatment: Continue with present treatment and follow up plan. Pt is to keep follow up appointment as instructed and take medications as ordered. Assessment: see hospital course Prescriptions: New oxycodone-acetaminophen [Percocet] 10-325 mg tablet 1 tab PO Q6H MDD 4 PRNQty: 30 0RF Continued quetiapine 200 MG tablet 200 mg PO HS amlodipine 10 MG tablet 10 mg PO DAILY Esomeprazole Magnesium [Nexium 40MG CAP] 40 MG Cap 40 mg PO BID Levothyroxine Sodium [Synthroid] 75 MCG Tab 75 mcg PO DAILY dapagliflozin propanediol [Farxiga] 10 mg tablet 10 mg PO QDAY pramipexole 1 mg tablet 1 mg PO TID atorvastatin [Lipitor] 40 mg Tablet 40 mg PO QDAY sumatriptan succinate [Imitrex] 100 mg Tablet 100 mg PO BID PRN (Reason: Headache) famotidine 40 mg tablet 40 mg PO QPM baclofen 10 mg tablet 10 mg PO TID montelukast 10 mg tablet 10 mg PO QDAY hydroxyzine HCl 25 mg tablet 25 mg PO Q8H PRN escitalopram oxalate [Lexapro] 10 mg Tablet 10 mg PO TID insulin aspart U-100 [Novolog FlexPen U-100 Insulin] 100 unit/mL (3 mL) Insulin Pen 1 sliding scale dose SUBCUT USEASDIRECTD solifenacin 5 mg tablet 5 mg PO QPM levocetirizine 5 mg Tablet 5 mg PO QDAY Centrum Silver Women 8 mg iron-400 mcg-50 mcg Tablet 1 tab PO QDAY insulin degludec [Tresiba FlexTouch U-200] 200 unit/mL (3 mL) Insulin Pen 10 unit SUBCUT QDAY Belsomra 10 mg tablet 10 mg PO QPM Aimovig Autoinjector 70 mg/mL auto-injector 70 mg SUBCUT QMONTH Mounjaro 15 mg/0.5 mL Pen Injector 15 mg SUBCUT QWEEK Orders to Discharge Patient Discharge Orders: Discharge (Routine); Ordered 10/25/23 Ordered By: Obi Storey Follow ups/Referrals Follow ups/Referrals: Obi Storey [STAFF PHYSICIAN] - 11/06/23 10:15 am Instructions Instructions: Femorofemoral Bypass, Care After, Carotid Artery Disease, Ea sy-to-Read Stand Alone Forms: Excuse From Work or School, Post Hospital Follow Up Care
[2023-10-25 13:12] VITALS: BP 181/73; PULSE 101; RESP 21; TEMP 98.3; O2SAT 97
--- NOTE | 2023-10-30 14:22 | DR.OPNOTE ---
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 Both groins and the lower abdomen prepped and draped in sterile fashion. Timeout for the procedure obtained. Vertical incision was made in the left groin and dissection carried out with some difficulty due to her large size identifying the common femoral artery, superficial femoral artery and profunda femoris . Vessel loops placed around all of these after dissecting them out. Identical procedure carried out on the right side through a vertical incision placing vessel loops around all of the vessels of the right groin including the common femoral, superficial femoral and profunda femoris A 6 millimeter ringed Gortex graph was tunneled over the pubic bone in the subcutaneous tissue between the 2 incisions. The patietn was given 5,000 units f IV of Heparin. The left common femoral atery was clamped and the other vessels controlled with vessel lopos . The artery opened with a # 11 knife blade and Pott's scissors, the graft fashioned for anastomosis and the anastomosis carried out with running 5-0 Proline suture. The graft was clamped and back bleeding allowed showing no significant bleeding other than needle holes. With the graft clamped and the left artery unclamped the right common femoral artery clamped and other vessels controlled with vessel loops. The right common femoral artery opened with # 11 knife blade and Pott's scissors, the graft fashioned for anastomosis with a number 11 knife blade and anastomosis performed with running fiber 5-0 Prolene suture. Flow re-es tablished by releasing the clamps with 2 areas of leaking requiring figure of eight sutures of 6 -0 prolene suture. The patient had excellent Flow by doppler study in the superficial femoral arteries of both legs. The groins irrigated. Surgicel placed over both anastomoisis. Each groin close with 2 layers of running 2-0 Vicryl suture and the skin closed with skin Fantasma. The patient tolerated all this well, was extubated and taken to PACU in good condition. Type of Anesthesia: General Anesthetic w/ETT Findings: ABOVE Type of Fluids Used:: Lactated Ringers Total Amount of Fluid Infused:: 1600 CC Urine output: 300 CC EBL: 350 CC Drains/Tubes Placed: None Complications:: NONE Needle/Sponge Count:: CORRECT Disposition/Condition: Pt. tolerated procedure without difficulty. Extubated in the OR and taken to PACU in stable condition.
--- NOTE | 2023-10-30 14:37 | DR.UPDATE ---
H&P UPDATE Review Yes Any changes to H&P?: No Changes noted:: This is the update for the H&P for admission 10/24/2023 after surgery Patient was examined?: Yes
== END 2023-10-25 14:05 | disposition home or self-care (01) ==
LOC: INTOOBSV 08:09 → MED/SURG 08:09 → ICU 16:55
PROVIDERS: ADMIT Surgery; ATTEND Surgery

== ENCOUNTER 2023-10-28 01:19 | Observation (INO) ==
--- NOTE | 2023-10-28 01:37 | DR.EXTPAIN ---
HPI Time seen Time Seen by Provider: 10/28/23 01:35 Complaint/Symptoms Chief Complaint Doctor Comments: Patient was sent [address] Nails out of the ER in [place]. He stated the patient presented there after having a recent femoropopliteal done by Dr. Hickey here there was some warmth at the site of erythema to site and she need to be further evaluated by him and the hospital here. COVID-19 Coronavirus risk:travel/contact w/high risk person: No Has patient experienced Coronavirus symptoms: No PMH PMH Past Medical History: Diabetes, Dyslipidemia and Hypertension Past Surgical History: Yes Surgical History: Cholecystectomy, Hysterectomy, Joint Replacement and Tonsillectomy Family History Family Medical History: Diabetes Mellitus, Cancer, Heart Failure and Hypertension Social History Do you use any recreational Drugs:: No Travel Risk Coronavirus risk:travel/contact w/high risk person: No Has patient experienced Coronavirus symptoms: No ROS Review of Systems Constitutional: Other (Altered mental status and lower abdominal pain) Eyes: No Symptoms Reported ENTM: No Symptoms Reported Respiratoy: No Symptoms Reported Cardiovascular: No Symptoms Reported Gastrointestinal/Abdominal: Abdominal Pain Genitourinary: No Symptoms Reported Neurological: Other (Altered mental status) Musculoskeletal: No Symptoms Reported Integumentary: No Symptoms Reported Hematologic/Lymphatic: No Symptoms Reported Endocrine: No Symptoms Reported Psychiatric: Other (Altered mental status) PE Vital Signs Vitals: Vital Signs Temperature 99.1 F Temperature 98.7 F Pulse Rate 104 Pulse Rate 95 Pulse Rate 94 Pulse Rate 107 Respiratory Rate 18 Respiratory Rate 18 Respiratory Rate 16 Respiratory Rate 23 Blood Pressure 117/55 Blood Pressure 87/50 Blood Pressure 103/56 Blood Pressure 120/57 O2 Sat by Pulse Oximetry 94 O2 Sat by Pulse Oximetry 95 O2 Sat by Pulse Oximetry 98 O2 Sat by Pulse Oximetry 97 General Limitations: Physical Limitation (LIMITED DUE TO INCREASED ABDOMINAL PAIN AND LETHARGY) Head Head Exam: Normal Inspection, Atraumatic and Normocephalic Eyes Eye exam: Normal Appearance, PERRL and EOMI ENT ENT Exam: Normal Exam, Normal Oropharynx and Normal External Ear Exam Neck Neck Exam: Normal Inspection and Full ROM Chest Chest Inspection: Normal Inspection and Symmetric Chest Wall Rise Respiratory Respiratory Exam: Normal Lung Sounds Bilat Respiratory Exam: Bilateral: Clear to Auscultation Cardiovascular Cardiovascular Exam: Regular Rate and Normal Rhythm Abdominal Exam Abdominal Exam: Normal Inspection and Tenderness (LOWER QUADRANTS) Abdominal Tenderness: Other (LOWER QUADRANTS) Extremities Extremities Exam: Normal Inspection Upper Extremities Arm Exam: Normal Inspection Elbow Exam: Normal Inspection Forearm Exam: Normal Inspection Hand Exam: Normal Inspection Neuromotor Exam: Normal Exam Neurosensory Exam: Normal Exam Lower Extremities Hip/Pelvis Exam: Normal Inspection Upper Leg Exam: Normal Inspection Knee Exam: Normal Inspection Lower Leg Exam: Normal Inspection Ankle Exam: Normal Inspection Foot/Toe Exam: Normal Inspection Gait Exam: Not Tested/Not Observed Back Back Exam: Normal Inspection Neurological Neurological Exam: Alert, Oriented X3 and CN II-XII Intact Psychiatric Psychiatric Exam: Depressed Skin Skin Exam: Warm and Dry MDM Differential Diagnosis Differential Diagnosis: Other (SEPSIS,NINTENTIONAL DRUG OVERDOSE,UTI,LOCAL CELLULITIS) COURSE Treatment Treatment: Patient remained stable during ER evaluation although we did review the note sent from [facility] Dr. Nails and the patient did not appear to be septic and very minimal erythema of the area on her lower abdominal area the patient was with leukocytosis and she appeared to be grossly alert. The patient did have a femoropopliteal done 2 days ago the ER physician at [place] stated the patient probably need to be follow-up with intubated I did the femoropopliteal therefore he would like for us to set the patient here for further evaluation if needed and to be seen by her vascular surgeon. I did except the patient here for further evaluation and we did call Dr. Storey he stated that get a CT scan of her brain to make sure nothing going on and there we did get that and she had no intracranial bleed or no intra cranial abnormality.Back to Dr. Storey at about 0 420 and he stated he would like for the medical on-call center recruiter to evaluate further for this change in her mental status and I also spoke to Dr. Betancourt at 0 445 and he said he will except the ankle rest. I reevaluated patient and 455 and she was more alert at that particular time I advised her that we were going to refer to observation for this change in mental status and see if she does improve she stated she felt with her that they did give her the Narcan earlier and we will continue to treat her for pain and monitor her neurologic status. The patient had labs drawn and [place] which she did not have a elevated white count and the other labs were normal lactic acid level was normal and she was was not febrile when she got here temperature was 99.1. Will draw labs on this patient for the a.m. draw CBC CMP. Opioid Opioid Risk Tool Age (Torres box if 16-45): No History of Preadolescent Sexual Abuse: No Total: 0 Total Score Risk Category: Low Risk Copyright: Serjio BARTHOLOMEW predicting aberrant behaviors Discharge Plan Diagnosis Discharge Problem: Accidental medication overdose, Acute alteration in mental status, Status post femoral-popliteal bypass surgery Discharge Plan Patient Disposition: 09 ADMITTED INPATIENT Condition: Stable Orders to Discharge Patient Discharge Orders: Transfer (Routine); Ordered 10/28/23 Ordered By: Robert Saul
[2023-10-28 01:45] VITALS: BMI 47.1
--- NOTE | 2023-10-28 03:21 | CT ---
EXAM: CT HEAD WITHOUT IV CONTRAST HISTORY: Confusion COMPARISON: None. TECHNIQUE: Axial images were acquired of the head without IV contrast. Coronal and sagittal images were provided . All images were reviewed in a variety of windows and levels. LIMITATIONS: Please note that CT has low sensitivity and accuracy for identifying acute infarction. I n addition, there are portions of the brain that are affected by beam hardening artifact which furthe r greatly limits identification of an acute infarct. RADIATION REDUCTION TECHNIQUE: Automated exposure control, Adjustment of the mA and/or kV according t o patient size, or iterative reconstruction techniques were used. FINDINGS: There is no evidence of an acute intracranial bleed. There is no evidence of a mass or midline shift. There is no evidence of an extra-axial fluid collection. The jaime-white matter differentiation is within normal limits. The visualized bones are unremarkable. The visualized sinuses are clear. The mastoid air cells are well-aerated. IMPRESSION: 1. THERE IS NO EVIDENCE OF AN ACUTE INTRACRANIAL BLEED THIS IS AN ELECTRONICALLY VERIFIED FINAL REPORT 10/28/2023 3:18 AM - Electronically signed by Troy Townsend MD
[2023-10-28] MEDS: NARCAN INJ IVP ONE (03:30)
[2023-10-28] MEDS ORDERED: PATIENT'S HOME MEDICATION (Insulin Aspart U-100 [Novolog Flexpen U-100 Insulin] 100 unit/m SUBCUT SCH (05:27)
[2023-10-28] MEDS: LEXAPRO PO SCH (06:13)
[2023-10-28] MEDS: LEXAPRO ONE ×2 (07:06→21:05)
[2023-10-28] MEDS ORDERED: PATIENT'S HOME MEDICATION (Dapagliflozin Propanediol [Farxiga] 10 mg tablet) PO SCH (09:00)
[2023-10-28] MEDS: SYNTHROID 75 mcg TAB PO SCH (09:16)
[2023-10-28] MEDS: FARXIGA PO SCH (09:16)
[2023-10-28] MEDS: LIPITOR TAB 40 MG PO SCH (09:17)
[2023-10-28] MEDS: NexIUM PO SCH (09:18)
[2023-10-28] MEDS: [UNRECOGNIZED DRUG - OTHER] SUBCUT SCH (09:24)
[2023-10-28] MEDS: INSULIN DEGLUDEC 200 UNIT/ML SUBCUT SCH (09:24)
[2023-10-28 09:58] LABS: BASOPHILS % (AUTO) 0.4 % (0.2-1.0); EOSINOPHILS % (AUTO) 0.3 % (0.9-2.9); HEMATOCRIT 25.3 % (36.0-47.0); HEMOGLOBIN 8.6 g/dL (12.0-16.0); LYMPHOCYTES # (AUTO) 0.6 X10^3/uL (1.3-2.9); LYMPHOCYTES % (AUTO) 6.5 % (21.0-51.0); MEAN CORPUSCULAR HEMOGLOBIN 28.7 pg (27.0-34.0); MEAN CORPUSCULAR HGB CONC 34.1 g/dL (33.0-35.0); MEAN CORPUSCULAR VOLUME 84.1 fL (80.0-100.0); MEAN PLATELET VOLUME 7.3 fL (7.4-11.0); MONOCYTES # (AUTO) 0.8 x10^3/uL (0.3-0.8); MONOCYTES % (AUTO) 9.1 % (0.0-13.0); NEUTROPHILS # (AUTO) 7.6 x10^3/uL (2.2-4.8); NEUTROPHILS % (AUTO) 83.7 % (42.0-75.0); PLATELET COUNT 103 X10^3/uL (150.0-450.0); RED CELL DISTRIBUTION WIDTH 17.9 % (11.6-16.5); WHITE BLOOD COUNT 9.1 X10^3/uL (3.6-10.0)
[2023-10-28 10:09] LABS: ALBUMIN 1.8 g/dL (3.4-5.0); CALCIUM 8.6 mg/dL (8.5-10.1); CARBON DIOXIDE 29.5 mmol/L (21-32); COR CA(FOR HYPOALB) 10.4 mg/dL (8.5-10.1); CREATININE 1.28 mg/dL (0.55-1.02); MAGNESIUM 2.1 mg/dL (2.0-2.9); POTASSIUM 4.4 mmol/L (3.5-5.1)
--- NOTE | 2023-10-28 12:22 | DR.H&P ---
H&P History & Physical for Day of: H&P Date: 10/28/23 Chief Complaint Chief Complaint: leg pain, rash, AMS Allergies Allergies Allergy/AdvReac Type Severity Reaction Status Date / Time latex Allergy Severe PHLEBITIS Verified 10/28/23 01:47 NSAIDS (Non-Steroidal Allergy Severe ANAPHALEXIS Verified 10/28/23 01:47 Anti-Inflamma REACTION [NSAID] Penicillins Allergy Severe ANAPHALEXIS Verified 10/28/23 01:47 REACTION tramadol [From Ultram] Allergy Severe RASH Verified 10/28/23 01:47 acetaminophen [From Tylenol] Allergy Verified 10/28/23 01:47 clindamycin Allergy Verified 10/28/23 01:47 ibuprofen [From Motrin] Allergy Verified 10/28/23 01:47 History of Present Illness History of Present Illness: Ms Wright is a 57y/o female who was discharged on 10/25/23 after having left leg femoral bypass procedure by Dr Storey. She initially presented to [place] [facility] and was transferred here to be evaluated by Dr Storey. She was noted to be confused on admission. CT-brain did not show any acute abnormalities. Patient was discharged with pain medications so it's unclear if she took too many opioids. Patient did receive narcan in the ER. She was admitter for observation. She is alert and oriented this morning. She reports having left leg pain and redness around the site. She has been ambulating to the bathroom. Labs/imaging reviewed -Hgb 8.6 Plt 103 WBC 9.1 BUN/Cr: 44/1.28 Plan: Continue current treatment, Dr Storey has been consulted to assess the patient's procedure site. Patient does not have a white count. Monitor redness. Resume home medications. Patient states she is not sure how much pain medicine she took yesterday. She states her leg was hurting a lot so she took more. Monitor AM labs/imaging. Past Medical History Past Medical History: Diabetes, Dyslipidemia and Hypertension Past Surgical History Surgical History: Cholecystectomy, Hysterectomy, Joint Replacement and Tonsillectomy Family History Family Medical History: Diabetes Mellitus, Cancer, Heart Failure and Hypertension Social History Does any household member use tobacco: No Alcohol Use: None Drug Use: None Medications Home Medications: Home Medications Medication Instructions Recorded Confirmed Type Esomeprazole Magnesium [Nexium 40 mg PO BID 07/22/12 10/28/23 History 40MG CAP] Levothyroxine Sodium [Synthroid] 75 mcg PO DAILY 07/22/12 10/28/23 History amlodipine 10 mg tablet 10 mg PO DAILY 07/22/12 10/23/23 History quetiapine 200 mg tablet 200 mg PO HS 07/22/12 10/28/23 History dapagliflozin propanediol 10 mg 10 mg PO QDAY 10/18/23 10/28/23 History tablet (Farxiga) atorvastatin 40 mg tablet (Lipitor) 40 mg PO QDAY 10/23/23 10/28/23 History baclofen 10 mg tablet 10 mg PO TID 10/23/23 10/23/23 History erenumab-aooe 70 mg/mL 70 mg subcut QMONTH 10/23/23 10/28/23 History subcutaneous auto-injector (Aimovig Autoinjector) escitalopram oxalate 10 mg tablet 10 mg PO TID 10/23/23 10/28/23 History (Lexapro) famotidine 40 mg tablet 40 mg PO QPM 10/23/23 10/28/23 History hydroxyzine HCl 25 mg tablet 25 mg PO Q8H PRN 10/23/23 10/23/23 History insulin aspart U-100 100 unit/mL 1 sliding scale dose subcut 10/23/23 10/28/23 History (3 mL) subcutaneous pen (Novolog USEASDIRECTD FlexPen U-100 Insulin aspart) insulin degludec 200 unit/mL (3 10 unit subcut QDAY 10/23/23 10/23/23 History mL) subcutaneous pen (Tresiba FlexTouch U-200 insulin) levocetirizine 5 mg tablet 5 mg PO QDAY 10/23/23 10/28/23 History montelukast 10 mg tablet 10 mg PO QDAY 10/23/23 10/28/23 History lamuoyez-umou-jwlr 8 mg-folic 400 1 tab PO QDAY 10/23/23 10/23/23 History mcg-K 50 mcg-lutein 300 mcg tablet (Centrum Silver Women) pramipexole 1 mg tablet 1 mg PO TID 10/23/23 10/28/23 History solifenacin 5 mg tablet 5 mg PO QPM 10/23/23 10/28/23 History sumatriptan succinate 100 mg 100 mg PO BID PRN Headache 10/23/23 10/28/23 History tablet (Imitrex) suvorexant 10 mg tablet (Belsomra) 10 mg PO QPM 10/23/23 10/28/23 History tirzepatide 15 mg/0.5 mL 15 mg subcut QWEEK 10/23/23 10/28/23 History subcutaneous pen injector (Mounjaro) Labs 10/28/23 09:50 10/28/23 09:50 Labs: Laboratory WBC 9.1 X10^3/uL (3.6-10.0) 10/28/23 09:50 RBC 3.00 X10^6/uL (3.5-5.4) L 10/28/23 09:50 Hgb 8.6 g/dL (12.0-16.0) L 10/28/23 09:50 Hct 25.3 % (36.0-47.0) L 10/28/23 09:50 MCV 84.1 fL (80.0-100.0) 10/28/23 09:50 MCH 28.7 pg (27.0-34.0) 10/28/23 09:50 MCHC 34.1 g/dL (33.0-35.0) 10/28/23 09:50 RDW 17.9 % (11.6-16.5) H 10/28/23 09:50 Plt Count 103 X10^3/uL (150.0-450.0) L 10/28/23 09:50 MPV 7.3 fL (7.4-11.0) L 10/28/23 09:50 Neut % (Auto) 83.7 % (42.0-75.0) H 10/28/23 09:50 Lymph % (Auto) 6.5 % (21.0-51.0) L 10/28/23 09:50 [place] % (Auto) 9.1 % (0.0-13.0) 10/28/23 09:50 Eos % (Auto) 0.3 % (0.9-2.9) L 10/28/23 09:50 Baso % (Auto) 0.4 % (0.2-1.0) 10/28/23 09:50 Neut # (Auto) 7.6 x10^3/uL (2.2-4.8) H 10/28/23 09:50 Lymph # (Auto) 0.6 X10^3/uL (1.3-2.9) L 10/28/23 09:50 [place] # (Auto) 0.8 x10^3/uL (0.3-0.8) 10/28/23 09:50 Eos # (Auto) 0.0 x10^3/uL (0.0-0.2) 10/28/23 09:50 Baso # (Auto) 0.0 X10^3/uL (0.0-0.1) 10/28/23 09:50 Absolute Nucleated RBC 0.1 /100WBC 10/28/23 09:50 Sodium 137 mmol/L (136-145) 10/28/23 09:50 Corrected Sodium 139 mmol/L (136-145) 10/28/23 09:50 Potassium 4.4 mmol/L (3.5-5.1) 10/28/23 09:50 Chloride 101 mmol/L (98-107) 10/28/23 09:50 Carbon Dioxide 29.5 mmol/L (21-32) 10/28/23 09:50 BUN 44 mg/dL (7-18) H 10/28/23 09:50 Creatinine 1.28 mg/dL (0.55-1.02) H 10/28/23 09:50 Est GFR (MDRD) Af Amer 55 (>60) L 10/28/23 09:50 Est GFR (MDRD) Non-Af 46 (>60) L 10/28/23 09:50 Glucose 191 mg/dL (65-99) H 10/28/23 09:50 POC Glucose (mg/dL) 138 mg/dL (65-99) H 10/28/23 11:38 Calcium 8.6 mg/dL (8.5-10.1) 10/28/23 09:50 Corrected Calcium 10.4 mg/dL (8.5-10.1) H 10/28/23 09:50 Magnesium 2.1 mg/dL (2.0-2.9) 10/28/23 09:50 Total Bilirubin 1.60 mg/dL (0.2-1.0) H 10/28/23 09:50 AST 45 Units/L (15-37) H 10/28/23 09:50 ALT 59 Units/L (12-78) 10/28/23 09:50 Alkaline Phosphatase 115 Units/L (46-116) 10/28/23 09:50 Total Protein 6.0 g/dL (6.4-8.2) L 10/28/23 09:50 Albumin 1.8 g/dL (3.4-5.0) L 10/28/23 09:50 Globulin 4.2 g/dL (2.5-4.5) 10/28/23 09:50 Albumin/Globulin Ratio 0.4 Ratio (1.1-2.1) L 10/28/23 09:50 Review of Systems Constitutional: Weakness Eyes: No Symptoms Reported ENT: No Symptoms Reported Respiratory: No Symptoms Reported Cardiovascular: No Symptoms Reported Gastrointestinal: No Symptoms Reported Musculoskeletal: Leg Pain Skin: Rash Neurological: Confusion Physical Exam Vital Signs: Vital Signs Temperature 98.9 F Temperature 98.9 F Pulse Rate [Left Brachial] 90 Pulse Rate [Left Brachial] 100 Pulse Rate 88 Respiratory Rate 20 Respiratory Rate 19 Respiratory Rate 18 Blood Pressure [Left Arm] 108/53 Blood Pressure [Left Arm] 102/53 Blood Pressure 106/56 O2 Sat by Pulse Oximetry 90 O2 Sat by Pulse Oximetry 92 O2 Sat by Pulse Oximetry 94 Oriented: Normal Eyes: Normal Nose: Normal Throat: Normal Respiratory: Diminished Throughout Cardiovascular: Normal and Edema Auscultation: Bowel Sounds: Normal Palpation: Normal Tenderness: Normal Skin: Rash and Tender Musculoskeletal: Left (groin area, slight erythema noted, mild tenderness ) Psychiatric: Normal Affect: Normal Speech Pattern: Clear and Appropriate Assessment/Plan (1) Accidental medication overdose: Qualifiers: Encounter type: initial encounter Qualified Code(s): T50.901A - Poisoning by unspecified drugs, medicaments and biological substances, accidental (unintentional), initial encounter Status: Acute (2) Acute alteration in mental status: Status: Acute (3) Status post femoral-popliteal bypass surgery: Status: Acute (4) Atherosclerosis of [place] arteries of extremities with rest pain, left leg: Status: Acute Review H&P Reviewed: Yes Patient was examined?: Yes
[2023-10-28] MEDS ORDERED: LEXAPRO ONE (13:24)
[2023-10-28] MEDS: PEPCID TAB 40 MG PO SCH (21:04)
[2023-10-28] MEDS: NYSTATIN POWDER TOP SCH (21:39)
[2023-10-28] MEDS: VANCOMYCIN IV *PREMIX 1.75 G/350 ML BAG 1.75 G/350 ML PIGGYBACK IV SCH (21:39)
[2023-10-28] MEDS ORDERED: VANCOMYCIN IV *PREMIX 1 G/200 ML BAG 1 G/200 ML PIGGYBACK IV SCH (22:00)
[2023-10-28] MEDS: NS 500 ML IV 500 ML IV ONE (22:18)
[2023-10-29 05:18] LABS: BASOPHILS % (AUTO) 0.2 % (0.2-1.0); EOSINOPHILS % (AUTO) 0.5 % (0.9-2.9); HEMATOCRIT 23.3 % (36.0-47.0); HEMOGLOBIN 7.9 g/dL (12.0-16.0); LYMPHOCYTES # (AUTO) 0.5 X10^3/uL (1.3-2.9); LYMPHOCYTES % (AUTO) 7.4 % (21.0-51.0); MEAN CORPUSCULAR HEMOGLOBIN 28.4 pg (27.0-34.0); MEAN CORPUSCULAR HGB CONC 33.9 g/dL (33.0-35.0); MEAN PLATELET VOLUME 7.5 fL (7.4-11.0); MONOCYTES # (AUTO) 0.8 x10^3/uL (0.3-0.8); MONOCYTES % (AUTO) 11.4 % (0.0-13.0); NEUTROPHILS # (AUTO) 5.4 x10^3/uL (2.2-4.8); NEUTROPHILS % (AUTO) 80.5 % (42.0-75.0); PLATELET COUNT 93 X10^3/uL (150.0-450.0); RED BLOOD COUNT 2.77 X10^6/uL (3.5-5.4); RED CELL DISTRIBUTION WIDTH 17.8 % (11.6-16.5); WHITE BLOOD COUNT 6.7 X10^3/uL (3.6-10.0)
[2023-10-29] MEDS: LEXAPRO ONE (05:28)
[2023-10-29 05:42] LABS: ALANINE AMINOTRANSFERASE 47 Units/L (12-78); ALBUMIN 1.6 g/dL (3.4-5.0); ALKALINE PHOSPHATASE 103 Units/L (46-116); ASPARTATE AMINO TRANSFERASE 33 Units/L (15-37); BLOOD UREA NITROGEN 31 mg/dL (7-18); CALCIUM 8.3 mg/dL (8.5-10.1); CARBON DIOXIDE 29.7 mmol/L (21-32); CHLORIDE 103 mmol/L (98-107); COR CA(FOR HYPOALB) 10.2 mg/dL (8.5-10.1); COR NA(FOR HYPERGLY) 140 mmol/L (136-145); CREATININE 0.93 mg/dL (0.55-1.02); GLUCOSE 141 mg/dL (65-99); POTASSIUM 3.8 mmol/L (3.5-5.1); SODIUM 139 mmol/L (136-145); TOTAL PROTEIN 5.7 g/dL (6.4-8.2); eGFR NON BLACK RACES > 60 (>60)
[2023-10-29] MEDS ORDERED: CONSULT PHARMACY - POTASSIUM & MAGNESIUM XX SCH (06:00)
[2023-10-29] MEDS: TRESIBA U-100 INSULIN SC SCH (08:33)
[2023-10-29] MEDS: K-DUR TAB 20 MEQ PO SCH ×2 (08:34→11:37)
--- NOTE | 2023-10-29 11:53 | PCM.PROG ---
Progress Note Progress Note for Day of Date of Exam: 10/29/23 Subjective Subjective: Patient seen at bedside, no acute events overnight. She states her legs continue to hurt. Wound Cx was collected yesterday and IV Vancomycin was started by Dr Storey. She has been getting up and ambulating a little bit. Her BP has been low this morning, 97/56. Labs/imaging reviewed -Hgb 7.9 Plt 93 BUN/Cr: 31/0.93 -Wound Cx pending Plan: follow Vascular recommendations, continue IV Vancomycin, follow wound Cx. Continue wound care. Will add Demerol prn for pain control. Hold anti- hypertensives, monitor BP. Repeat H&H. Continue other medications. Add lovenox for DVT ppx. Monitor AM labs/imaging. Past Medical Family Social History Allergies: Allergies latex Allergy (Severe, Verified 10/28/23 01:47) PHLEBITIS NSAIDS (Non-Steroidal Anti-Inflamma [NSAID] Allergy (Severe, Verified 10/28/23 01:47) ANAPHALEXIS REACTION Penicillins Allergy (Severe, Verified 10/28/23 01:47) ANAPHALEXIS REACTION tramadol [From Ultram] Allergy (Severe, Verified 10/28/23 01:47) RASH acetaminophen [From Tylenol] Allergy (Verified 10/28/23 01:47) clindamycin Allergy (Verified 10/28/23 01:47) ibuprofen [From Motrin] Allergy (Verified 10/28/23 01:47) Vital Signs and I&O's Vital Signs: Vital Signs Temperature 97.9 F Temperature 98.3 F Pulse Rate [Left Brachial] 86 Pulse Rate [Left Brachial] 93 Respiratory Rate 20 Respiratory Rate 20 Blood Pressure [Left Arm] 97/56 Blood Pressure [Left Arm] 123/59 O2 Sat by Pulse Oximetry 96 O2 Sat by Pulse Oximetry 92 Intake and Output: Intake & Output 10/26/23 10/27/23 10/28/23 10/29/23 23:59 23:59 23:59 23:59 Intake Total 630 / 630 820 / 820 Balance 630 / 630 820 / 820 Physical Exam Oriented: Normal Eyes: Normal Nose: Normal Throat: Normal Cardiovascular: Normal and Edema Auscultation: Bowel Sounds: Normal Palpation: Normal Tenderness: Normal Skin: Rash and Tender Musculoskeletal: Left (groin area, slight erythema noted, mild tenderness ) Psychiatric: Normal Mood Description: Calm Affect: Normal Speech Pattern: Clear and Appropriate Laboratory and Diagnostics 10/29/23 04:32 10/29/23 04:32 Labs: Laboratory WBC 6.7 X10^3/uL (3.6-10.0) 10/29/23 04:32 RBC 2.77 X10^6/uL (3.5-5.4) L 10/29/23 04:32 Hgb 7.9 g/dL (12.0-16.0) L 10/29/23 04:32 Hct 23.3 % (36.0-47.0) L 10/29/23 04:32 MCV 84.0 fL (80.0-100.0) 10/29/23 04:32 MCH 28.4 pg (27.0-34.0) 10/29/23 04:32 MCHC 33.9 g/dL (33.0-35.0) 10/29/23 04:32 RDW 17.8 % (11.6-16.5) H 10/29/23 04:32 Plt Count 93 X10^3/uL (150.0-450.0) L 10/29/23 04:32 MPV 7.5 fL (7.4-11.0) 10/29/23 04:32 Neut % (Auto) 80.5 % (42.0-75.0) H 10/29/23 04:32 Lymph % (Auto) 7.4 % (21.0-51.0) L 10/29/23 04:32 [place] % (Auto) 11.4 % (0.0-13.0) 10/29/23 04:32 Eos % (Auto) 0.5 % (0.9-2.9) L 10/29/23 04:32 Baso % (Auto) 0.2 % (0.2-1.0) 10/29/23 04:32 Neut # (Auto) 5.4 x10^3/uL (2.2-4.8) H 10/29/23 04:32 Lymph # (Auto) 0.5 X10^3/uL (1.3-2.9) L 10/29/23 04:32 [place] # (Auto) 0.8 x10^3/uL (0.3-0.8) 10/29/23 04:32 Eos # (Auto) 0.0 x10^3/uL (0.0-0.2) 10/29/23 04:32 Baso # (Auto) 0.0 X10^3/uL (0.0-0.1) 10/29/23 04:32 Absolute Nucleated RBC 0.1 /100WBC 10/29/23 04:32 Sodium 139 mmol/L (136-145) 10/29/23 04:32 Corrected Sodium 140 mmol/L (136-145) 10/29/23 04:32 Potassium 3.8 mmol/L (3.5-5.1) 10/29/23 04:32 Chloride 103 mmol/L (98-107) 10/29/23 04:32 Carbon Dioxide 29.7 mmol/L (21-32) 10/29/23 04:32 BUN 31 mg/dL (7-18) H 10/29/23 04:32 Creatinine 0.93 mg/dL (0.55-1.02) 10/29/23 04:32 Est GFR (MDRD) Af Amer > 60 (>60) 10/29/23 04:32 Est GFR (MDRD) Non-Af > 60 (>60) 10/29/23 04:32 Glucose 141 mg/dL (65-99) H 10/29/23 04:32 POC Glucose (mg/dL) 138 mg/dL (65-99) H 10/28/23 11:38 Calcium 8.3 mg/dL (8.5-10.1) L 10/29/23 04:32 Corrected Calcium 10.2 mg/dL (8.5-10.1) H 10/29/23 04:32 Magnesium 2.2 mg/dL (2.0-2.9) 10/29/23 04:32 Total Bilirubin 1.20 mg/dL (0.2-1.0) H 10/29/23 04:32 AST 33 Units/L (15-37) 10/29/23 04:32 ALT 47 Units/L (12-78) 10/29/23 04:32 Alkaline Phosphatase 103 Units/L (46-116) 10/29/23 04:32 Total Protein 5.7 g/dL (6.4-8.2) L 10/29/23 04:32 Albumin 1.6 g/dL (3.4-5.0) L 10/29/23 04:32 Globulin 4.1 g/dL (2.5-4.5) 10/29/23 04:32 Albumin/Globulin Ratio 0.4 Ratio (1.1-2.1) L 10/29/23 04:32 Plan (1) Surgical site infection: Status: Acute (2) Hypotension: Status: Acute Qualifiers: Hypotension type: idiopathic hypotension Qualified Code(s): I95.0 - Id iopathic hypotension (3) Accidental medication overdose: Status: Acute Qualifiers: Encounter type: initial encounter Qualified Code(s): T50.901A - Poisoning by unspecified drugs, medicaments and biological substances, accidental (unintentional), initial encounter (4) Acute alteration in mental status: Status: Acute (5) Status post femoral-popliteal bypass surgery: Status: Acute (6) Atherosclerosis of [place] arteries of extremities with rest pain, left leg: Status: Acute
[2023-10-29] MEDS ORDERED: LEXAPRO ONE ×2 (13:24→20:41)
[2023-10-29 17:17] LABS: HEMATOCRIT 24.9 % (36.0-47.0); HEMOGLOBIN 8.4 g/dL (12.0-16.0)
--- NOTE | 2023-10-29 19:19 | NOTE.SOAP ---
Soap Note Note for Day of Date of Exam: 10/29/23 Subjective Data Subjective Data: Patient s/p fem fem bypass 10/24. Presented to ER with confusion and determined to have taken too much pain medication. CT of head negative . Doing better now. Nurses had described some redness of the left groin incision which I do not see. There is a healing ridge left groin. Objective Data Temperature: 97.8 F Pulse Rate: 67 Respiratory Rate: 20 Blood Pressure: 119/76 O2 Sat by Pulse Oximetry: 99 Objective Data: as above Assessment Assessment: change of mental status due to narcotic use Plan Plan: discharge to tomorrow, on Vancomycin , discharge on po antibiotics.
[2023-10-29] MEDS: DEMEROL INJ IVP PRN (20:35)
[2023-10-29] MEDS: LOVENOX INJ 40 MG SYR SC SCH (20:51)
[2023-10-30 05:00] LABS: BASOPHILS % (AUTO) 0.5 % (0.2-1.0); EOSINOPHILS # (AUTO) 0.1 x10^3/uL (0.0-0.2); EOSINOPHILS % (AUTO) 1.8 % (0.9-2.9); HEMATOCRIT 23.7 % (36.0-47.0); LYMPHOCYTES # (AUTO) 0.6 X10^3/uL (1.3-2.9); LYMPHOCYTES % (AUTO) 9.6 % (21.0-51.0); MEAN CORPUSCULAR HEMOGLOBIN 28.2 pg (27.0-34.0); MEAN CORPUSCULAR HGB CONC 33.7 g/dL (33.0-35.0); MEAN CORPUSCULAR VOLUME 83.9 fL (80.0-100.0); MONOCYTES # (AUTO) 0.6 x10^3/uL (0.3-0.8); MONOCYTES % (AUTO) 9.6 % (0.0-13.0); NEUTROPHILS # (AUTO) 4.6 x10^3/uL (2.2-4.8); NEUTROPHILS % (AUTO) 78.5 % (42.0-75.0); PLATELET COUNT 99 X10^3/uL (150.0-450.0); RED BLOOD COUNT 2.83 X10^6/uL (3.5-5.4); RED CELL DISTRIBUTION WIDTH 17.5 % (11.6-16.5); WHITE BLOOD COUNT 5.9 X10^3/uL (3.6-10.0)
[2023-10-30 05:11] LABS: ALANINE AMINOTRANSFERASE 38 Units/L (12-78); ALBUMIN 1.6 g/dL (3.4-5.0); ALKALINE PHOSPHATASE 111 Units/L (46-116); ASPARTATE AMINO TRANSFERASE 29 Units/L (15-37); BLOOD UREA NITROGEN 18 mg/dL (7-18); CALCIUM 8.3 mg/dL (8.5-10.1); CARBON DIOXIDE 30.5 mmol/L (21-32); CHLORIDE 103 mmol/L (98-107); COR CA(FOR HYPOALB) 10.2 mg/dL (8.5-10.1); COR NA(FOR HYPERGLY) 140 mmol/L (136-145); CREATININE 0.76 mg/dL (0.55-1.02); GLUCOSE 146 mg/dL (65-99); POTASSIUM 3.6 mmol/L (3.5-5.1); SODIUM 139 mmol/L (136-145); TOTAL PROTEIN 6.1 g/dL (6.4-8.2); eGFR NON BLACK RACES > 60 (>60)
[2023-10-30] MEDS ORDERED: LEXAPRO ONE (05:37)
[2023-10-30] MEDS: HumaLOG SC PRN (05:54)
[2023-10-30] MEDS ORDERED: CONSULT PHARMACY - POTASSIUM & MAGNESIUM XX SCH ×2 (06:00→07:00)
[2023-10-30 08:23] VITALS: BP 131/69; PULSE 87; RESP 18; TEMP 98; O2SAT 95
[2023-10-30] MEDS: K-DUR TAB 20 MEQ PO SCH (09:12)
--- NOTE | 2023-10-31 11:40 | W.DIS.FURT ---
Summary of Discharge Discharge Summary of Date Date of Exam: 10/30/23 Admission Date Date of Admission: 10/28/23 Admission Diagnosis Patient Problems (Updated 10/28/23 @ 05:05 by Robert Saul) Accidental medication overdose (Acute) T50.901A Acute alteration in mental status (Acute) R41.82 Status post femoral-popliteal bypass surgery (Acute) Z95.828 Hospital Course: Ms Wright is a 57y/o female who was discharged on 10/25/23 after having left leg femoral bypass procedure by Dr Storey. She initially presented to [facility] and was transferred here to be evaluated by Dr Storey. She was noted to be confused on admission. CT-brain did not show any acute abnormalities. Patient was discharged with pain medications so it's unclear if she took too many opioids. Patient did receive narcan in the ER. She was admitted for observation. She was alert and oriented the next day. She reports having left leg pain and redness around the site. She has been ambulating to the bathroom. Dr. Storey evaluated the patient, wound culture was sent.Her dressing was changed daily. Patient was feeling better, leg redness had improved. She has a follow-up with Dr. Storey outpatient. She was stable to be discharged home on oral antibiotics. Vital Signs: Vital Signs (72 hours) 10/29/23 19:18 10/28/23 01:27 10/28/23 02:30 Temperature 97.8 F 98.7 F Pulse Rate 67 107 H 94 H Pulse Rate [Left Brachial] Respiratory Rate 20 23 16 Blood Pressure 119/76 120/57 103/56 Blood Pressure [Left Arm] O2 Sat by Pulse Oximetry 99 97 98 Oxygen Delivery Method Nasal Cannula Nasal Cannula Oxygen Flow Rate 3 10/28/23 03:30 10/28/23 03:40 10/28/23 03:45 Temperature 99.1 F Pulse Rate 95 H 104 H Pulse Rate [Left Brachial] Respiratory Rate 18 18 Blood Pressure 87/50 117/55 Blood Pressure [Left Arm] O2 Sat by Pulse Oximetry 95 94 L Oxygen Delivery Method Nasal Cannula Nasal Cannula Oxygen Flow Rate 3 3 10/28/23 05:31 10/28/23 05:22 10/28/23 05:35 Temperature 98.9 F Pulse Rate 88 Pulse Rate [Left Brachial] 100 H Respiratory Rate 18 19 Blood Pressure 106/56 Blood Pressure [Left Arm] 102/53 O2 Sat by Pulse Oximetry 94 L 92 L Oxygen Delivery Method Nasal Cannula Nasal Cannula Nasal Cannula Oxygen Flow Rate 3 2 3 10/28/23 08:00 10/28/23 09:20 10/28/23 12:00 Temperature 98.9 F 98.2 F Pulse Rate Pulse Rate [Left Brachial] 90 93 H Respiratory Rate 20 20 Blood Pressure Blood Pressure [Left Arm] 108/53 105/51 O2 Sat by Pulse Oximetry 90 L 92 L Oxygen Delivery Method Nasal Cannula Nasal Cannula Nasal Cannula Oxygen Flow Rate 3 2 3 10/28/23 16:00 10/28/23 19:00 10/28/23 20:00 Temperature 99.4 F 98.2 F Pulse Rate Pulse Rate [Left Brachial] 102 H 90 Respiratory Rate 20 20 Blood Pressure Blood Pressure [Left Arm] 108/51 128/59 O2 Sat by Pulse Oximetry 91 L 97 Oxygen Delivery Method Nasal Cannula Nasal Cannula Nasal Cannula Oxygen Flow Rate 3 2 3 10/28/23 23:48 10/29/23 04:00 10/29/23 08:38 Temperature 98.2 F 98.3 F Pulse Rate Pulse Rate [Left Brachial] 98 H 93 H Respiratory Rate 20 20 Blood Pressure Blood Pressure [Left Arm] 109/54 123/59 O2 Sat by Pulse Oximetry 92 L Oxygen Delivery Method Nasal Cannula Nasal Cannula Nasal Cannula Oxygen Flow Rate 2 2 2 10/29/23 08:00 10/29/23 12:00 10/29/23 16:00 Temperature 97.9 F 98 F 97.8 F Pulse Rate Pulse Rate [Left Brachial] 86 70 67 Respiratory Rate 20 20 20 Blood Pressure Blood Pressure [Left Arm] 97/56 132/61 119/76 O2 Sat by Pulse Oximetry 96 99 99 Oxygen Delivery Method Nasal Cannula Nasal Cannula Nasal Cannula Oxygen Flow Rate 2 2 2 10/29/23 19:00 10/29/23 20:35 10/29/23 21:08 Temperature Pulse Rate Pulse Rate [Left Brachial] Respiratory Rate 20 20 Blood Pressure Blood Pressure [Left Arm] O2 Sat by Pulse Oximetry Oxygen Delivery Method Nasal Cannula Oxygen Flow Rate 2 10/29/23 20:00 10/29/23 21:35 10/30/23 00:00 Temperature 98.9 F 98.5 F Pulse Rate Pulse Rate [Left Brachial] 83 89 Respiratory Rate 20 20 20 Blood Pressure Blood Pressure [Left Arm] 155/80 134/62 O2 Sat by Pulse Oximetry 94 L 92 L Oxygen Delivery Method Nasal Cannula Nasal Cannula Oxygen Flow Rate 2 2 10/30/23 04:00 10/30/23 08:00 10/30/23 07:00 Temperature 98.7 F 98 F Pulse Rate Pulse Rate [Left Brachial] 90 87 Respiratory Rate 20 18 Blood Pressure Blood Pressure [Left Arm] 137/64 131/69 O2 Sat by Pulse Oximetry 92 L 95 Oxygen Delivery Method Room Air Nasal Cannula Oxygen Flow Rate 2 Labs: Laboratory Last Values WBC 5.9 X10^3/uL (3.6-10.0) 10/30/23 04:34 RBC 2.83 X10^6/uL (3.5-5.4) L 10/30/23 04:34 Hgb 8.0 g/dL (12.0-16.0) L 10/30/23 04:34 Hct 23.7 % (36.0-47.0) L 10/30/23 04:34 MCV 83.9 fL (80.0-100.0) 10/30/23 04:34 MCH 28.2 pg (27.0-34.0) 10/30/23 04:34 MCHC 33.7 g/dL (33.0-35.0) 10/30/23 04:34 RDW 17.5 % (11.6-16.5) H 10/30/23 04:34 Plt Count 99 X10^3/uL (150.0-450.0) L 10/30/23 04:34 MPV 7.0 fL (7.4-11.0) L 10/30/23 04:34 Neut % (Auto) 78.5 % (42.0-75.0) H 10/30/23 04:34 Lymph % (Auto) 9.6 % (21.0-51.0) L 10/30/23 04:34 [place] % (Auto) 9.6 % (0.0-13.0) 10/30/23 04:34 Eos % (Auto) 1.8 % (0.9-2.9) 10/30/23 04:34 Baso % (Auto) 0.5 % (0.2-1.0) 10/30/23 04:34 Neut # (Auto) 4.6 x10^3/uL (2.2-4.8) 10/30/23 04:34 Lymph # (Auto) 0.6 X10^3/uL (1.3-2.9) L 10/30/23 04:34 [place] # (Auto) 0.6 x10^3/uL (0.3-0.8) 10/30/23 04:34 Eos # (Auto) 0.1 x10^3/uL (0.0-0.2) 10/30/23 04:34 Baso # (Auto) 0.0 X10^3/uL (0.0-0.1) 10/30/23 04:34 Absolute Nucleated RBC 0.1 /100WBC 10/30/23 04:34 Sodium 139 mmol/L (136-145) 10/30/23 04:34 Corrected Sodium 140 mmol/L (136-145) 10/30/23 04:34 Potassium 3.6 mmol/L (3.5-5.1) 10/30/23 04:34 Chloride 103 mmol/L (98-107) 10/30/23 04:34 Carbon Dioxide 30.5 mmol/L (21-32) 10/30/23 04:34 BUN 18 mg/dL (7-18) 10/30/23 04:34 Creatinine 0.76 mg/dL (0.55-1.02) 10/30/23 04:34 Est GFR (MDRD) Af Amer > 60 (>60) 10/30/23 04:34 Est GFR (MDRD) Non-Af > 60 (>60) 10/30/23 04:34 Glucose 146 mg/dL (65-99) H 10/30/23 04:34 POC Glucose (mg/dL) 138 mg/dL (65-99) H 10/28/23 11:38 Calcium 8.3 mg/dL (8.5-10.1) L 10/30/23 04:34 Corrected Calcium 10.2 mg/dL (8.5-10.1) H 10/30/23 04:34 Magnesium 1.9 mg/dL (2.0-2.9) L 10/30/23 04:34 Total Bilirubin 1.10 mg/dL (0.2-1.0) H 10/30/23 04:34 AST 29 Units/L (15-37) 10/30/23 04:34 ALT 38 Units/L (12-78) 10/30/23 04:34 Alkaline Phosphatase 111 Units/L (46-116) 10/30/23 04:34 Total Protein 6.1 g/dL (6.4-8.2) L 10/30/23 04:34 Albumin 1.6 g/dL (3.4-5.0) L 10/30/23 04:34 Globulin 4.5 g/dL (2.5-4.5) 10/30/23 04:34 Albumin/Globulin Ratio 0.4 Ratio (1.1-2.1) L 10/30/23 04:34 Reason For Visit: CHANGE IN MENTALSTATUS, UNINTENTIONAL DRUG Discharge Diagnosis All Active Problems (Updated 10/29/23 @ 11:52 by Micki Varela) Hypotension (Acute) Surgical site infection (Acute) Accidental medication overdose (Acute) Acute alteration in mental status (Acute) Status post femoral-popliteal bypass surgery (Acute) Atherosclerosis of [place] arteries of extremities with rest pain, left leg (Acute) Tinea corporis (Active) Plan of Treatment: Continue with present treatment and follow up plan. Pt is to keep follow up appointment as instructed and take medications as ordered. Discharge Medications Discharge Medications: latex Allergy (Severe, Verified 10/28/23 01:47) PHLEBITIS NSAIDS (Non-Steroidal Anti-Inflamma [NSAID] Allergy (Severe, Verified 10/28/23 01:47) ANAPHALEXIS REACTION Penicillins Allergy (Severe, Verified 10/28/23 01:47) ANAPHALEXIS REACTION tramadol [From Ultram] Allergy (Severe, Verified 10/28/23 01:47) RASH acetaminophen [From Tylenol] Allergy (Verified 10/28/23 01:47) clindamycin Allergy (Verified 10/28/23 01:47) ibuprofen [From Motrin] Allergy (Verified 10/28/23 01:47) Discharge Disposition Discharge Disposition: To home Discharge Condition: Stable Discharge Plan Discharge Plan Hospital Course: Ms Wright is a 57y/o female who was discharged on 10/25/23 after having left leg femoral bypass procedure by Dr Storey. She initially presented to [facility] and was transferred here to be evaluated by Dr Storey. She was noted to be confused on admission. CT-brain did not show any acute abnormalities. Patient was discharged with pain medications so it's unclear if she took too many opioids. Patient did receive narcan in the ER. She was admitted for observation. She was alert and oriented the next day. She reports having left leg pain and redness around the site. She has been ambulating to the bathroom. Dr. Storey evaluated the patient, wound culture was sent.Her dressing was changed daily. Patient was feeling better, leg redness had improved. She has a follow-up with Dr. Storey outpatient. She was stable to be discharged home on oral antibiotics. Patient Disposition: 01 HOME, SELF-CARE Condition: Stable Health Concerns: Post Hospitalization: new medications and changes needed to prevent readmission or further decline. Pt educated and given instructions on all concerns. Care Plan Goals: Problem: Pain/Alteration in Comfort Goal: Improve/ Resolve Pain; Achieve Pain Tolerance Instructions: Take pain medications as prescribed. Contact your primary care provider if your pain is unrelieved or worsens. Follow up with primary care provider as directed. Plan of Treatment: Continue with present treatment and follow up plan. Pt is to keep follow up appointment as instructed and take medications as ordered. Prescription drug monitoring program results: PDMP reviewed and no concerns identified Prescriptions: New sulfamethoxazole-trimethoprim [Bactrim] 400-80 mg tablet 1 tab PO BID Qty: 14 0RF Continued quetiapine 200 MG tablet 200 mg PO HS amlodipine 10 MG tablet 10 mg PO DAILY Esomeprazole Magnesium [Nexium 40MG CAP] 40 MG Cap 40 mg PO BID Levothyroxine Sodium [Synthroid] 75 MCG Tab 75 mcg PO DAILY dapagliflozin propanediol [Farxiga] 10 mg tablet 10 mg PO QDAY pramipexole 1 mg tablet 1 mg PO TID atorvastatin [Lipitor] 40 mg Tablet 40 mg PO QDAY sumatriptan succinate [Imitrex] 100 mg Tablet 100 mg PO BID PRN (Reason: Headache) famotidine 40 mg tablet 40 mg PO QPM baclofen 10 mg tablet 10 mg PO HS montelukast 10 mg tablet 10 mg PO QDAY escitalopram oxalate [Lexapro] 10 mg Tablet 10 mg PO TID insulin aspart U-100 [Novolog FlexPen U-100 Insulin] 100 unit/mL (3 mL) Insulin Pen 1 sliding scale dose SUBCUT USEASDIRECTD solifenacin 5 mg tablet 5 mg PO QPM levocetirizine 5 mg Tablet 5 mg PO QDAY Centrum Silver Women 8 mg iron-400 mcg-50 mcg Tablet 1 tab PO QDAY insulin degludec [Tresiba FlexTouch U-200] 200 unit/mL (3 mL) Insulin Pen 10 unit SUBCUT QDAY Belsomra 10 mg tablet 10 mg PO QPM Aimovig Autoinjector 70 mg/mL auto-injector 70 mg SUBCUT QMONTH Mounjaro 15 mg/0.5 mL Pen Injector 15 mg SUBCUT QWEEK oxycodone-acetaminophen [Percocet] 10-325 mg tablet 1 tab PO Q6H MDD 4 PRNQty: 30 0RF Orders to Discharge Patient Discharge Orders: Discharge (Routine); Ordered 10/30/23 Ordered By: Obi Storey Follow ups/Referrals Follow ups/Referrals: Obi Storey [STAFF PHYSICIAN] - 11/06/23 10:15 am Instructions Instructions: Hypotension, [id number], Wound Infection, [id number] Stand Alone Forms: Excuse From Work or School, Post Hospital Follow Up Care
== END 2023-10-30 11:30 | disposition home or self-care (01) ==
LOC: ER 01:19 → MED/SURG 01:19
PROVIDERS: ADMIT Family Medicine; ATTEND Family Medicine

== ENCOUNTER 2024-06-26 10:30 | Observation (INO) ==
[2024-06-26] MEDS: NOZIN NASAL SANITIZER TP ONE (10:42)
[2024-06-26] MEDS: NS 1,000 ML IV 1,000 ML ONE (10:43)
[2024-06-26] MEDS: LR 1,000 ML IV 1,000 ML IV ONE (11:16)
[2024-06-26] MEDS ORDERED: BENADRYL INJ 50 MG VIAL IVP PRN (13:58)
[2024-06-26] MEDS ORDERED: DILAUDID INJ IVP PRN (13:58)
[2024-06-26] MEDS ORDERED: BARHEMSYS INJ IVP PRN (13:58)
[2024-06-26] MEDS ORDERED: REGLAN INJ 10 MG VIAL IVP PRN (13:58)
[2024-06-26] MEDS ORDERED: ZOFRAN INJ 4 MG VIAL IVP PRN ×2 (13:58→15:30)
[2024-06-26] MEDS: ANCEF VIAL 1 GRAM ONE (15:08)
[2024-06-26] MEDS: NS 100 ML IV 100 ML ONE (15:08)
[2024-06-26] MEDS ORDERED: STERILE WATER IRRIGATION IR ONE (15:11)
[2024-06-26] MEDS: PEPCID 20 MG VIAL ONE (15:18)
[2024-06-26] MEDS ORDERED: KETAMINE HCL ONE (15:18)
[2024-06-26] MEDS: DIPRIVAN VIAL 20 ML ONE (15:18)
[2024-06-26] MEDS: FENTANYL VIAL INJ 100 mcg ONE ×2 (15:18→16:39)
[2024-06-26] MEDS: ZOFRAN INJ 4 MG VIAL ONE ×2 (15:18)
[2024-06-26] MEDS ORDERED: SUPRANE ONE (15:18)
[2024-06-26] MEDS: VERSED ONE (15:18)
[2024-06-26] MEDS ORDERED: PRECEDEX INJ VIAL ONE (15:18)
[2024-06-26] MEDS: EPHEDRINE SULFATE INJ ONE (15:36)
[2024-06-26] MEDS: MARCAINE 0.25% INJ ONE (15:38)
[2024-06-26] MEDS: DILAUDID INJ ONE (17:21)
[2024-06-26] MEDS: BRIDION ONE (17:44)
[2024-06-26] MEDS: COLACE CAP 100 MG PO SCH (20:11)
[2024-06-26] MEDS: DILAUDID INJ IVP PRN (20:12)
[2024-06-26] MEDS: NS 1,000 ML IV 1,000 ML IV SCH (20:16)
[2024-06-26] MEDS: PERCOCET TAB 5/325 MG PO PRN (23:38)
[2024-06-27 06:29] LABS: BLOOD UREA NITROGEN 14 mg/dL (7-18); CALCIUM 8.7 mg/dL (8.5-10.1); CARBON DIOXIDE 31.1 mmol/L (21-32); CHLORIDE 106 mmol/L (98-107); COR NA(FOR HYPERGLY) 143 mmol/L (136-145); CREATININE 0.87 mg/dL (0.55-1.02); GLUCOSE 138 mg/dL (65-99); POTASSIUM 3.8 mmol/L (3.5-5.1); SODIUM 142 mmol/L (136-145); eGFR NON BLACK RACES > 60 (>60)
--- NOTE | 2024-06-27 09:06 | NOTE.SOAP ---
Soap Note Note for Day of Date of Exam: 06/27/24 Subjective Data Subjective Data: Patient is POD#1 STJ Fusion of the RLE with Hardware removal from previous ankle surgery. She states her pain is decently controlled. Has nausea but that is her baseline. Denies any nausea, vomiting, fevers, chills, shortness of breath, chest pain, or calf pain. Objective Data Objective Data: Right Lower Extremity: Dressing was removed. DELANEY drain had approximately 40 ccs of sanguinous drainage. DELANEY drain was removed. Surgical incisions are healing well as expected. Sutures in place.Redressed right lower extremity with 4x4s, ABD, Webroll, Splint, and SONIA. No signs or symptoms concerning for DVT or PE to RLE. Assessment Assessment: 58 year old Female POD#1 Hardware removal, osteotomy of tibia/talus, and stj fusion of the RLE Plan Plan: - Strict NWB to RLE. - Dressing to remain intact to RLE. Do not change. - Patient is awaiting rehab placement. Spoke with CM they are going to try and get her approved for [facility] rehab. - Prescriptions are in chart for pain medication and anti-nausea medication. - Patient does not need Lovenox. She is already on Xeralto. Can restart Xeralto today. - Okay for discharge to rehab facility upon approval from Podiatry standpoint.
[2024-06-27] MEDS ORDERED: PATIENT'S HOME MEDICATION (Levocetirizine 5 mg Tablet) PO SCH (10:30)
[2024-06-27] MEDS: XARELTO PO SCH (10:49)
[2024-06-27] MEDS: SINGULAIR TAB 10 MG PO SCH (10:49)
[2024-06-27] MEDS: FARXIGA PO SCH (10:49)
[2024-06-27] MEDS: KLOR-CON 10 MEQ TAB PO SCH (10:49)
[2024-06-27] MEDS: LYRICA CAP 150 mg PO SCH (10:50)
[2024-06-27] MEDS: SYNTHROID 75 mcg TAB PO SCH (10:50)
[2024-06-27] MEDS: LIPITOR TAB 40 MG PO SCH (10:50)
[2024-06-27] MEDS: ASPIRIN EC 81 MG PO SCH (10:50)
[2024-06-27] MEDS: LASIX PO SCH (10:50)
[2024-06-27] MEDS: MIRAPEX TAB 1 MG PO SCH (10:50)
[2024-06-27] MEDS: TRESIBA U-100 INSULIN SC SCH (11:30)
[2024-06-27] MEDS: VONOPRAZAN 20 MG PO SCH (14:54)
[2024-06-27] MEDS: PEPCID TAB 40 MG PO SCH (21:05)
[2024-06-27] MEDS: PATIENT'S HOME MEDICATION (Solifenacin 5 mg tablet) PO SCH (23:27)
[2024-06-28 06:35] LABS: BASOPHILS % (AUTO) 0.3 % (0.2-1.0); EOSINOPHILS % (AUTO) 0.3 % (0.9-2.9); HEMATOCRIT 33.1 % (36.0-47.0); HEMOGLOBIN 11.2 g/dL (12.0-16.0); LYMPHOCYTES # (AUTO) 1.1 X10^3/uL (1.3-2.9); LYMPHOCYTES % (AUTO) 12.5 % (21.0-51.0); MEAN CORPUSCULAR HEMOGLOBIN 27.8 pg (27.0-34.0); MEAN CORPUSCULAR HGB CONC 33.9 g/dL (33.0-35.0); MEAN CORPUSCULAR VOLUME 82.1 fL (80.0-100.0); MEAN PLATELET VOLUME 7.6 fL (7.4-11.0); MONOCYTES # (AUTO) 0.8 x10^3/uL (0.3-0.8); NEUTROPHILS # (AUTO) 6.6 x10^3/uL (2.2-4.8); NEUTROPHILS % (AUTO) 77.9 % (42.0-75.0); PLATELET COUNT 112 X10^3/uL (150.0-450.0); RED BLOOD COUNT 4.03 X10^6/uL (3.5-5.4); RED CELL DISTRIBUTION WIDTH 17.2 % (11.6-16.5); WHITE BLOOD COUNT 8.5 X10^3/uL (3.6-10.0)
[2024-06-28] MEDS: TRESIBA U-100 INSULIN SC SCH (11:09)
[2024-06-29 07:07] LABS: BASOPHILS % (AUTO) 0.3 % (0.2-1.0); EOSINOPHILS # (AUTO) 0.1 x10^3/uL (0.0-0.2); EOSINOPHILS % (AUTO) 0.9 % (0.9-2.9); HEMATOCRIT 29.5 % (36.0-47.0); HEMOGLOBIN 10.1 g/dL (12.0-16.0); LYMPHOCYTES # (AUTO) 0.5 X10^3/uL (1.3-2.9); LYMPHOCYTES % (AUTO) 7.6 % (21.0-51.0); MEAN CORPUSCULAR HEMOGLOBIN 27.9 pg (27.0-34.0); MEAN CORPUSCULAR HGB CONC 34.4 g/dL (33.0-35.0); MEAN CORPUSCULAR VOLUME 81.1 fL (80.0-100.0); MEAN PLATELET VOLUME 7.8 fL (7.4-11.0); MONOCYTES # (AUTO) 0.6 x10^3/uL (0.3-0.8); MONOCYTES % (AUTO) 8.5 % (0.0-13.0); NEUTROPHILS # (AUTO) 5.6 x10^3/uL (2.2-4.8); NEUTROPHILS % (AUTO) 82.7 % (42.0-75.0); PLATELET COUNT 89 X10^3/uL (150.0-450.0); RED BLOOD COUNT 3.64 X10^6/uL (3.5-5.4); RED CELL DISTRIBUTION WIDTH 17.1 % (11.6-16.5); WHITE BLOOD COUNT 6.8 X10^3/uL (3.6-10.0)
[2024-06-29 07:27] LABS: ALANINE AMINOTRANSFERASE 32 Units/L (12-78); ALBUMIN 2.1 g/dL (3.4-5.0); ALKALINE PHOSPHATASE 141 Units/L (46-116); ASPARTATE AMINO TRANSFERASE 47 Units/L (15-37); BLOOD UREA NITROGEN 16 mg/dL (7-18); CARBON DIOXIDE 32.7 mmol/L (21-32); CHLORIDE 105 mmol/L (98-107); COR CA(FOR HYPOALB) 10.5 mg/dL (8.5-10.1); CREATININE 0.79 mg/dL (0.55-1.02); GLUCOSE 99 mg/dL (65-99); POTASSIUM 3.6 mmol/L (3.5-5.1); SODIUM 143 mmol/L (136-145); TOTAL PROTEIN 6.3 g/dL (6.4-8.2); eGFR NON BLACK RACES > 60 (>60)
[2024-06-29] MEDS ORDERED: CONSULT PHARMACY - POTASSIUM & MAGNESIUM XX SCH (09:00)
[2024-06-29] MEDS: ACTOS PO SCH (11:17)
[2024-06-29] MEDS: GLUCOPHAGE XR 24-HR PO SCH (11:17)
[2024-06-29] MEDS: NS 1,000 ML IV 1,000 ML with MAGNESIUM SULFATE 50% INJ VIAL 1 G IV SCH (11:20)
[2024-06-29] MEDS: NORCO 7.5/325 MG TAB PO PRN (13:24)
[2024-06-29] MEDS: K-DUR TAB 20 MEQ PO SCH (20:17)
[2024-06-30 06:12] LABS: BASOPHILS % (AUTO) 0.3 % (0.2-1.0); EOSINOPHILS # (AUTO) 0.1 x10^3/uL (0.0-0.2); EOSINOPHILS % (AUTO) 1.8 % (0.9-2.9); HEMATOCRIT 29.1 % (36.0-47.0); LYMPHOCYTES # (AUTO) 0.5 X10^3/uL (1.3-2.9); LYMPHOCYTES % (AUTO) 12.9 % (21.0-51.0); MEAN CORPUSCULAR HGB CONC 34.4 g/dL (33.0-35.0); MEAN CORPUSCULAR VOLUME 81.3 fL (80.0-100.0); MEAN PLATELET VOLUME 7.6 fL (7.4-11.0); MONOCYTES # (AUTO) 0.3 x10^3/uL (0.3-0.8); MONOCYTES % (AUTO) 8.2 % (0.0-13.0); NEUTROPHILS # (AUTO) 3.2 x10^3/uL (2.2-4.8); NEUTROPHILS % (AUTO) 76.8 % (42.0-75.0); PLATELET COUNT 92 X10^3/uL (150.0-450.0); RED BLOOD COUNT 3.58 X10^6/uL (3.5-5.4); RED CELL DISTRIBUTION WIDTH 17.5 % (11.6-16.5); WHITE BLOOD COUNT 4.1 X10^3/uL (3.6-10.0)
[2024-06-30 06:28] LABS: ALANINE AMINOTRANSFERASE 29 Units/L (12-78); ALBUMIN 2.1 g/dL (3.4-5.0); ALKALINE PHOSPHATASE 130 Units/L (46-116); ASPARTATE AMINO TRANSFERASE 34 Units/L (15-37); BLOOD UREA NITROGEN 12 mg/dL (7-18); CALCIUM 8.9 mg/dL (8.5-10.1); CARBON DIOXIDE 35.6 mmol/L (21-32); CHLORIDE 105 mmol/L (98-107); COR CA(FOR HYPOALB) 10.4 mg/dL (8.5-10.1); CREATININE 0.74 mg/dL (0.55-1.02); GLUCOSE 78 mg/dL (65-99); MAGNESIUM 1.8 mg/dL (2.0-2.9); POTASSIUM 3.2 mmol/L (3.5-5.1); SODIUM 145 mmol/L (136-145); TOTAL PROTEIN 6.3 g/dL (6.4-8.2); eGFR NON BLACK RACES > 60 (>60)
[2024-06-30] MEDS ORDERED: CONSULT PHARMACY - POTASSIUM & MAGNESIUM XX SCH (07:00)
[2024-06-30] MEDS: TRESIBA U-100 INSULIN SC SCH (08:13)
[2024-06-30] MEDS: MAG-OX TAB PO SCH (09:36)
[2024-06-30] MEDS: K-DUR TAB 20 MEQ PO SCH (09:36)
[2024-06-30] MEDS: BUTT CREAM (COMPOUND) TOP PRN (18:25)
[2024-06-30] MEDS: MYRBETRIQ PO SCH (20:45)
[2024-07-01 06:20] LABS: BASOPHILS % (AUTO) 0.4 % (0.2-1.0); EOSINOPHILS # (AUTO) 0.1 x10^3/uL (0.0-0.2); EOSINOPHILS % (AUTO) 2.6 % (0.9-2.9); HEMATOCRIT 30.4 % (36.0-47.0); HEMOGLOBIN 10.5 g/dL (12.0-16.0); LYMPHOCYTES # (AUTO) 0.6 X10^3/uL (1.3-2.9); MEAN CORPUSCULAR HEMOGLOBIN 28.2 pg (27.0-34.0); MEAN CORPUSCULAR HGB CONC 34.5 g/dL (33.0-35.0); MEAN CORPUSCULAR VOLUME 81.8 fL (80.0-100.0); MEAN PLATELET VOLUME 7.9 fL (7.4-11.0); MONOCYTES # (AUTO) 0.3 x10^3/uL (0.3-0.8); MONOCYTES % (AUTO) 7.3 % (0.0-13.0); NEUTROPHILS # (AUTO) 2.5 x10^3/uL (2.2-4.8); NEUTROPHILS % (AUTO) 72.7 % (42.0-75.0); PLATELET COUNT 109 X10^3/uL (150.0-450.0); RED BLOOD COUNT 3.72 X10^6/uL (3.5-5.4); WHITE BLOOD COUNT 3.5 X10^3/uL (3.6-10.0)
[2024-07-01 06:45] LABS: ALANINE AMINOTRANSFERASE 26 Units/L (12-78); ALBUMIN 2.2 g/dL (3.4-5.0); ALKALINE PHOSPHATASE 142 Units/L (46-116); ASPARTATE AMINO TRANSFERASE 26 Units/L (15-37); BLOOD UREA NITROGEN 13 mg/dL (7-18); CALCIUM 9.6 mg/dL (8.5-10.1); CARBON DIOXIDE 32.8 mmol/L (21-32); CHLORIDE 105 mmol/L (98-107); COR NA(FOR HYPERGLY) 144 mmol/L (136-145); CREATININE 0.76 mg/dL (0.55-1.02); GLUCOSE 159 mg/dL (65-99); MAGNESIUM 1.9 mg/dL (2.0-2.9); SODIUM 143 mmol/L (136-145); TOTAL PROTEIN 6.9 g/dL (6.4-8.2); eGFR NON BLACK RACES > 60 (>60)
[2024-07-01 09:03] VITALS: BP 190/79; PULSE 74; TEMP 98.1; O2SAT 93
[2024-07-01] MEDS: RHINOCORT ALLERGY NASAL SPRAY ENOSTRIL SCH (10:03)
[2024-07-01 10:15] VITALS: BMI 49.2
[2024-07-01 12:27] VITALS: RESP 20
[2024-07-02] MEDS ORDERED: TRESIBA U-100 INSULIN SC SCH (09:00)
== END 2024-07-01 16:15 ==
LOC: OBS → MED/SURG 18:28
PROVIDERS: ADMIT Obstetrics & Gynecology Obstetrics; ATTEND Obstetrics & Gynecology Obstetrics
PROC: HARDREM (ICD-10-PCS; 2024-06-26 10:45)
DX: M21.071 Valgus deformity, not elsewhere classified, right ankle; G89.18 Other acute postprocedural pain; T85.848A Pain due to other internal prosthetic devices, implants and grafts, initial encounter